=== PATIENT | female | born 1990 | race Hispanic/Latino ===

== ENCOUNTER 2016-10-17 10:35 | Emergency (ER) | payer OTHER ==
[2016-10-17 10:35] VITALS: BMI 33.2
[2016-10-17 10:43] VITALS: BP 145/94; PULSE 72; RESP 18; TEMP 98; O2SAT 100
--- NOTE | 2016-10-17 11:44 | ED PDOC ---
HPI: Female Pain Time Seen by Provider: 10/17/16 11:04 Chief Complaint (Nursing): Female Genitourinary Chief Complaint (Provider): Vaginal discharge, pelvic pain x 3 days History Per: Patient History/Exam Limitations: no limitations Onset/Duration Of Symptoms: Days Current Symptoms Are (Timing): Still Present Severity: Mild Ant/Post Bofy Image: 1 - Pain Additional Complaint(s): Pt states pain is both sides but slightly more on the right. PT reports irritation of the external genitals when urinating. PT reports unprotected intercourse with only. Pt states she came today because she saw while balls coming out of the vaginal last night. - LMP 09/29/16 Past Medical History Reviewed: Historical Data, Nursing Documentation, Vital Signs Vital Signs: Last Vital Signs Temp 98.0 F 10/17/16 10:59 Pulse 72 10/17/16 10:59 Resp 18 10/17/16 10:59 BP 145/94 H 10/17/16 10:59 Pulse Ox 100 10/17/16 10:59 - Medical History PMH: Anemia (hx transfusion) Denies: Chronic Kidney Disease - Surgical History Surgical History: No Surg Hx - Family History Family History: States: No Known Family Hx - Living Arrangements Living Arrangements: With Family - Social History Current smoker - smoking cessation education provided: No Alcohol: None Drugs: Denies - Immunization History Hx Tetanus Toxoid Vaccination: No Hx Influenza Vaccination: No Hx Pneumococcal Vaccination: No - Home Medications Home Medications: Ambulatory Orders Medication Instructions Recorded Cephalexin [cephalexin] 1 tab PO Q12 #20 cap 01/01/16 Naproxen [Anaprox DS] 1 tab PO Q12 PRN #20 tab 01/01/16 Docusate [Colace] 100 mg PO BID #60 cap 01/03/16 traMADol [Ultram] 50 mg PO Q6H PRN #20 tab 01/03/16 Ciprofloxacin [Cipro] 500 mg PO BID #10 tab 10/17/16 Fluconazole [Diflucan] 150 mg PO ONCE #2 tab 10/17/16 - Allergies Allergies/Adverse Reactions: Allergies Allergy/AdvReac Type Severity Reaction Status Date / Time No Known Allergies Allergy Verified 10/17/16 10:59 Review of Systems ROS Statement: Except As Marked, All Systems Reviewed And Found Negative Gastrointestinal: Negative for: Nausea, Vomiting, Rectal Pain Genitourinary Female: Positive for: Dysuria, Vaginal Discharge, Pelvic Pain Physical Exam - Reviewed Nursing Documentation Reviewed: Yes Vital Signs Reviewed: Yes - Physical Exam Appears: Positive for: Well, Non-toxic, No Acute Distress Head Exam: Positive for: ATRAUMATIC, NORMAL INSPECTION, NORMOCEPHALIC Skin: Positive for: Normal Color, Warm, DRY Eye Exam: Positive for: Normal appearance ENT: Positive for: Normal ENT Inspection Neck: Positive for: Normal, Painless ROM Cardiovascular/Chest: Positive for: Regular Rate, Rhythm Respiratory: Positive for: Normal Breath Sounds. Negative for: Accessory Muscle Use, Respiratory Distress Gastrointestinal/Abdominal: Positive for: Normal Exam, Bowel Sounds, Soft Pelvic Exam: Positive for: External Exam Normal, Bimanual Exam Normal, No Cerv. Motion Tender, No Masses, Discharge (White clumpy on the wall of the vaginal and cervix ). Negative for: Speculum Exam Normal Back: Positive for: Normal Inspection Extremity: Positive for: Normal ROM Neurologic/Psych: Positive for: Alert, Oriented - ECG O2 Sat by Pulse Oximetry: 100 Disposition - Clinical Impression Clinical Impression: Urinary tract infection, Yeast infection of the vagina - Disposition Disposition Time: 13:09 Condition: STABLE Prescriptions: Ciprofloxacin [Cipro] 500 mg PO BID #10 tab Fluconazole [Diflucan] 150 mg PO ONCE #2 tab Instructions: Urinary Tract Infection in Women (ED), Vulvovaginal Candidiasis ( ED) Print Language: CZECH
[2016-10-17 12:26] LABS: RBC URINE 11 /hpf (0-3); URINE BACTERIA RARE (<OCC); URINE BILIRUBIN NEGATIVE (NEGATIVE); URINE BLOOD SMALL (NEGATIVE); URINE COLOR STRAW (YELLOW); URINE GLUCOSE (UA) NEG (Normal); URINE KETONE NEGATIVE (NEGATIVE); URINE LEUKOCYTE ESTERASE LARGE Leu/uL (Negative); URINE PROTEIN NEGATIVE (NEGATIVE); URINE UROBILINOGEN 0.2-1.0 mg/dL (0.2-1.0); WBC URINE 42 /hpf (0-5)
== END 2016-10-17 13:30 | disposition home or self-care (01) ==
LOC: H.ER 10:35
DX: N39.0 Urinary tract infection, site not specified (principal); B37.3 Candidiasis of vulva and vagina

== ENCOUNTER 2016-12-14 15:05 | Emergency (ER) | payer SELFPAY ==
[2016-12-14 15:05] VITALS: BMI 33.2
[2016-12-14 15:21] VITALS: BP 137/77; PULSE 78; RESP 18; TEMP 99; O2SAT 99
[2016-12-14] MEDS ORDERED: Prenatal Multivit/Folic Acid/Iron Tab PO STA (15:34)
--- NOTE | 2016-12-14 15:44 | ED PDOC ---
HPI: Abdomen Time Seen by Provider: 12/14/16 15:25 Chief Complaint (Nursing): Abdominal Pain Chief Complaint (Provider): Abdominal pain History Per: Patient History/Exam Limitations: no limitations Onset/Duration Of Symptoms: Days (3) Outside of [place] travel?: No Current Symptoms Are (Timing): Still Present Severity: Moderate Location Of Pain/Discomfort: Diffuse Quality Of Discomfort: "Pain" Associated Symptoms: denies: Fever, Chills, Back Pain, Chest Pain, Urinary Symptoms Additional Complaint(s): The pt is a 26yo female, LMP on 10/29/16 with a positive home test, presents to the ED for evaluation of abdominal pain present for the past 3 days. Pt reports she was lifting a heavy box at work and a corner of the box pushed into her abdomen, resulting in pain. She reports that she was worried because she knows she is , so she presented to the ED. Pt denies any associated fever, chest pain, shortness of breath, vomiting, vaginal bleeding, vaginal discharge, urinary or bowel changes. Pt offers no additional medical complaints. Abnormal Vaginal Bleeding: No Last Menstral Period: 10/29/16 ED Scribe Attestation - Scribe Statement Scribe Attestation: Documented by Scribename acting as a scribe for Kerline Cates MD. Emily Chi Provider Scribe Attestation: All medical record entries made by the Scribe were at my direction and personally dictated by me. I have reviewed the chart and agree that the record accurately reflects my personal performance of the history, physical exam, medical decision making, and the department course for this patient. I have also personally directed, reviewed, and agree with the discharge instructions and disposition. Past Medical History Reviewed: Historical Data, Nursing Documentation, Vital Signs Vital Signs: Last Vital Signs Temp 99 F 12/14/16 15:17 Pulse 78 12/14/16 15:17 Resp 18 12/14/16 15:17 BP 137/77 12/14/16 15:17 Pulse Ox 99 12/14/16 17:28 - Medical History PMH: Anemia (hx transfusion) Denies: Chronic Kidney Disease - Surgical History Surgical History: No Surg Hx - Family History Family History: States: Unknown Family Hx - Immunization History Hx Tetanus Toxoid Vaccination: No Hx Influenza Vaccination: No Hx Pneumococcal Vaccination: No - Home Medications Home Medications: Ambulatory Orders Medication Instructions Recorded Cephalexin [cephalexin] 1 tab PO Q12 #20 cap 01/01/16 Naproxen [Anaprox DS] 1 tab PO Q12 PRN #20 tab 01/01/16 Docusate [Colace] 100 mg PO BID #60 cap 01/03/16 traMADol [Ultram] 50 mg PO Q6H PRN #20 tab 01/03/16 Ciprofloxacin [Cipro] 500 mg PO BID #10 tab 10/17/16 Fluconazole [Diflucan] 150 mg PO ONCE #2 tab 10/17/16 Multivit/Folic Acid/I 1 tab PO DAILY #30 tab 12/14/16 [ Plus] - Allergies Allergies/Adverse Reactions: Allergies Allergy/AdvReac Type Severity Reaction Status Date / Time No Known Allergies Allergy Verified 10/17/16 10:59 Review of Systems ROS Statement: Except As Marked, All Systems Reviewed And Found Negative Constitutional: Negative for: Fever, Chills Cardiovascular: Negative for: Chest Pain Respiratory: Negative for: Cough, Shortness of Breath Gastrointestinal: Positive for: Abdominal Pain. Negative for: Nausea, Vomiting Genitourinary Female: Negative for: Dysuria, Vaginal Discharge, Vaginal Bleeding , Pelvic Pain Neurological: Negative for: Weakness, Numbness Physical Exam - Reviewed Nursing Documentation Reviewed: Yes Vital Signs Reviewed: Yes - Physical Exam Appears: Positive for: Well, Non-toxic, No Acute Distress Head Exam: Positive for: ATRAUMATIC, NORMAL INSPECTION, NORMOCEPHALIC Skin: Positive for: Normal Color, Warm, DRY Eye Exam: Positive for: Normal appearance Neck: Positive for: Normal, Supple Cardiovascular/Chest: Positive for: Regular Rate, Rhythm Respiratory: Positive for: Normal Breath Sounds. Negative for: Respiratory Distress Gastrointestinal/Abdominal: Positive for: Normal Exam, Soft. Negative for: Tenderness, Mass, Distended Back: Positive for: Normal Inspection. Negative for: L CVA Tenderness, R CVA Tenderness Extremity: Positive for: Normal ROM. Negative for: Deformity, Swelling Neurologic/Psych: Positive for: Alert, Oriented - Laboratory Results Result Diagrams: 12/14/16 16:00 12/14/16 16:15 - ECG O2 Sat by Pulse Oximetry: 99 (RA) Pulse Ox Interpretation: Normal Medical Decision Making Medical Decision Making: Time: 1535 Impression: 26yo female w/ abdominal pain in setting of Differential: Monitoring , r/o ectopic Plan: -- US Transvaginal -- Labs -- Tylenol 650 mg PO -- multivitamin --Reassess U/S shows FINDINGS: Cardiac activity: Present Rate: 126 BPM Measurements: [place] rump length: 0.67 cm Gestational age based on CRL 6 weeks 4 days Gestational age based on gestational sac measurement 5 weeks 2 days Gestational age derived from LMP: 6 weeks 4 days VIOLA based on LMP: 08/05/2017 VIOLA based on biometry: 08/09/2017 Gestational concordance documented Yolk sac identified Uterus: Unremarkable. Uterine measurements 6.1 x 3.7 x 8.7 No Cervical abnormalities: Negative examination for cervical dilatation or effacement. Subchorionic hemorrhage: None ADNEXA: Right: 1 x 1.6 cm. Normal Doppler arterial waveform documented. Left: 1.2 x 1.3 cm. Normal Doppler arterial waveform documented Fluid in the cul-de-sac: None IMPRESSION: 6 weeks live intrauterine gestation. Gestational concordance documented. 5:14PM Patient's ua is negative for nitrates and leukocytes. Her cervix is closed and Blood type is O+ with no vaginal bleeding. Her Bhcg is 9458. CBC and CMP WNL. Patient reports that she has OB follow-up and will discharge patient with vitamins. Disposition - Clinical Impression Clinical Impression: Abdominal pain during - Disposition Disposition: Routine/Home Disposition Time: 17:26 Condition: GOOD Additional Instructions: You are 6 weeks . Your bhcg today was 9458. Follow up with your OB/ [facility] within 2 days. Return to ED if condition worsens. Take vitamin daily Prescriptions: Multivit/Folic Acid/I [ Plus] 1 tab PO DAILY #30 tab Instructions: Morning Sickness (ED), (ED) Print Language: ALBANIAN
[2016-12-14 16:20] LABS: BASO # 0.1 K/uL (0.0-0.2); BASO % 0.5 % (0.0-2.0); EOS # 0.1 K/uL (0.0-0.7); EOS % 0.9 % (0.0-4.0); HEMOGLOBIN 12.2 g/dL (12.0-16.0); LYMPH # 3.2 K/uL (1.0-4.3); LYMPH % 30.2 % (20.0-40.0); MEAN CELL VOLUME 83.6 fl (81.0-99.0); MEAN CORPUSCULAR HGB CONC 32.3 g/dL (33.0-37.0); MEAN PLATELET VOLUME 8.3 fl (7.2-11.7); MONO # 0.8 K/uL (0.0-0.8); MONO % 7.6 % (0.0-10.0); NEUT # 6.6 K/uL (1.8-7.0); NEUT % 60.8 % (50.0-75.0); NRBC % 0.1 % (0.0-0.0); RBC 4.52 Mil/uL (3.80-5.20); RED CELL DISTRIBUTION WIDTH 14.2 % (11.5-14.5); WHITE BLOOD COUNT 10.8 K/uL (4.8-10.8)
[2016-12-14 16:22] LABS: SQUAMOUS EPITHIAL < 1 /hpf (0-5); URINE BACTERIA RARE (<OCC); URINE BILIRUBIN NEGATIVE (NEGATIVE); URINE BLOOD NEGATIVE (NEGATIVE); URINE CLARITY SLIGHTY-CLOUDY (Clear); URINE COLOR YELLOW (YELLOW); URINE GLUCOSE (UA) NEG (Normal); URINE LEUKOCYTE ESTERASE NEG Leu/uL (Negative); URINE NITRATE NEGATIVE (NEGATIVE); URINE PROTEIN NEGATIVE (NEGATIVE); URINE UROBILINOGEN 0.2-1.0 mg/dL (0.2-1.0)
[2016-12-14 16:38] LABS: ALB/GLOB RATIO 1.2 (1.0-2.1); ALT/SGPT 35 U/L (9-52); AST/SGOT 24 U/L (14-36); BLOOD UREA NITROGEN 8 mg/dl (7-17); CALCIUM 9.3 mg/dL (8.4-10.2); GFR AFRICAN-AMERICAN > 60; GFR NON-AFRICAN AMERICAN > 60
--- NOTE | 2016-12-14 16:53 | US ---
PROCEDURE: First trimester ultrasound HISTORY: , abdominal pain Beta HCG results: Pending COMPARISON: None available. TECHNIQUE: Standard protocol for this study/examination. FINDINGS: LMP: 10/21/2016 Prior examinations from the current : None TECHNIQUE: Real-time 2D imaging, duplex and color Doppler. FINDINGS: Cardiac activity: Present Rate: 126 BPM Measurements: [place] rump length: 0.67 cm Gestational age based on CRL 6 weeks 4 days Gestational age based on gestational sac measurement 5 weeks 2 days Gestational age derived from LMP: 6 weeks 4 days VIOLA based on LMP: 08/05/2017 VIOLA based on biometry: 08/09/2017 Gestational concordance documented Yolk sac identified Uterus: Unremarkable. Uterine measurements 6.1 x 3.7 x 8.7 No Cervical abnormalities: Negative examination for cervical dilatation or effacement. Subchorionic hemorrhage: None ADNEXA: Right: 1 x 1.6 cm. Normal Doppler arterial waveform documented. Left: 1.2 x 1.3 cm. Normal Doppler arterial waveform documented Fluid in the cul-de-sac: None IMPRESSION: 6 weeks live intrauterine gestation. Gestational concordance documented.
== END 2016-12-14 17:38 | disposition home or self-care (01) ==
LOC: H.ER 15:05
DX: O26.891 Other specified pregnancy related conditions, first trimester (principal)

== ENCOUNTER 2017-02-17 16:15 | Emergency (ER) | payer MEDICAID, SELFPAY ==
[2017-02-17 16:15] VITALS: BMI 33.2
[2017-02-17 16:21] VITALS: BP 125/65; PULSE 74; RESP 18; TEMP 97.2; O2SAT 100
--- NOTE | 2017-02-17 16:58 | ED PDOC ---
HPI: Abdomen Time Seen by Provider: 02/17/17 16:25 Chief Complaint (Nursing): Abdominal Pain Chief Complaint (Provider): Abdominal Pain History Per: Patient History/Exam Limitations: no limitations Onset/Duration Of Symptoms: Days (1 week) Additional Complaint(s): Patient is a 26 y/o female, 16 weeks , who is complaining of a lower abdominal pain. The pain has lasted for one week, and is described as intermittent. Patient is positive for care, but denies fever, nausea, vomiting, constipation, and diarrhea. Past Medical History Reviewed: Historical Data, Nursing Documentation, Vital Signs Vital Signs: Last Vital Signs Temp 97.2 F L 02/17/17 16:18 Pulse 74 02/17/17 16:18 Resp 18 02/17/17 16:18 BP 125/65 02/17/17 16:18 Pulse Ox 100 02/17/17 17:24 - Medical History PMH: Anemia (hx transfusion) Denies: Chronic Kidney Disease - Surgical History Surgical History: No Surg Hx - Family History Family History: States: Unknown Family Hx - Social History Current smoker - smoking cessation education provided: No Alcohol: None Drugs: Denies - Immunization History Hx Tetanus Toxoid Vaccination: No Hx Influenza Vaccination: No Hx Pneumococcal Vaccination: No - Home Medications Home Medications: Ambulatory Orders Medication Instructions Recorded Cephalexin [cephalexin] 1 tab PO Q12 #20 cap 01/01/16 Naproxen [Anaprox DS] 1 tab PO Q12 PRN #20 tab 01/01/16 Docusate [Colace] 100 mg PO BID #60 cap 01/03/16 traMADol [Ultram] 50 mg PO Q6H PRN #20 tab 01/03/16 Ciprofloxacin [Cipro] 500 mg PO BID #10 tab 10/17/16 Fluconazole [Diflucan] 150 mg PO ONCE #2 tab 10/17/16 Multivit/Folic Acid/I 1 tab PO DAILY #30 tab 12/14/16 [ Plus] Miconazole Nitrate [Monistat 3] 1 each VG DAILY #1 kit 02/17/17 Nitrofurantoin Macrocrystals 100 mg PO BID #14 cap 02/17/17 [Macrobid] - Allergies Allergies/Adverse Reactions: Allergies Allergy/AdvReac Type Severity Reaction Status Date / Time No Known Allergies Allergy Verified 05/16/17 10:59 Review of Systems ROS Statement: Except As Marked, All Systems Reviewed And Found Negative Constitutional: Negative for: Fever Gastrointestinal: Positive for: Abdominal Pain (lower region). Negative for: Nausea, Vomiting, Diarrhea, Constipation Genitourinary Female: Negative for: Dysuria, Frequency, Incontinence, Hematuria , Vaginal Discharge, Vaginal Bleeding Physical Exam - Reviewed Nursing Documentation Reviewed: Yes Vital Signs Reviewed: Yes - Physical Exam Appears: Positive for: No Acute Distress Head Exam: Positive for: ATRAUMATIC, NORMAL INSPECTION, NORMOCEPHALIC Skin: Positive for: Normal Color, Warm, Dry Neck: Positive for: Normal, Supple Cardiovascular/Chest: Positive for: Regular Rate, Rhythm. Negative for: Murmur Respiratory: Positive for: Normal Breath Sounds. Negative for: Accessory Muscle Use, Respiratory Distress Gastrointestinal/Abdominal: Positive for: Soft, Tenderness (left-sided suprapubic). Negative for: Normal Exam, Guarding, Rebound Neurologic/Psych: Positive for: Alert, Oriented (x3) - ECG O2 Sat by Pulse Oximetry: 100 (RA) Pulse Ox Interpretation: Normal Medical Decision Making Medical Decision Making: Time: 16:45 Initial impression: Abdominal pain in second trimester Initial plan: ED Urine Dipstick Urinalysis Stat Ultra Sound OB Reevaluation Scribe Attestation: Documented by Liss Collazo, acting as a scribe for Gina Alejandre MD Provider Scribe Attestation: All medical record entries made by the Scribe were at my direction and personally dictated by me. I have reviewed the chart and agree that the record accurately reflects my personal performance of the history, physical exam, medical decision making, and the department course for this patient. I have also personally directed, reviewed, and agree with the discharge instructions and disposition. Disposition - Clinical Impression Clinical Impression: UTI (urinary tract infection), Yeast infection of the vagina, Abdominal pain during - Disposition Condition: STABLE Additional Instructions: FOLLOW-UP WITH YOUR OB-[facility] WITHIN 2 DAYS FOR REEVALUATION. Prescriptions: Miconazole Nitrate [Monistat 3] 1 each VG DAILY #1 kit Nitrofurantoin Macrocrystals [Macrobid] 100 mg PO BID #14 cap Instructions: Miconazole (Into the vagina), Vulvovaginal Candidiasis (ED), Abdominal Pain in (ED), Urinary Tract Infection in (ED) Forms: [facility] (Irish) Print Language: [place] CITIZEN
[2017-02-17 17:16] LABS: RBC URINE 2 /hpf (0-3); URINE BACTERIA OCC (<OCC); URINE BILIRUBIN NEGATIVE (NEGATIVE); URINE BLOOD NEGATIVE (NEGATIVE); URINE COLOR YELLOW (YELLOW); URINE GLUCOSE (UA) NEG (Normal); URINE KETONE NEGATIVE (NEGATIVE); URINE LEUKOCYTE ESTERASE NEG Leu/uL (Negative); URINE PROTEIN NEGATIVE (NEGATIVE); URINE UROBILINOGEN 0.2-1.0 mg/dL (0.2-1.0); WBC URINE 4 /hpf (0-5)
--- NOTE | 2017-02-17 20:24 | US ---
EXAM: US After First Trimester, Transabdominal CLINICAL HISTORY: 26 years old, female; Pain; complicated by abdominal or pelvic pain; Generalized abdominal pain; Second trimester; Gestational age or lmp: Lmp 5.25.2017; ; Additional info: Suprapubic pain, 16 weeks TECHNIQUE: Real-time transabdominal obstetrical ultrasound of the maternal pelvis and a second or third trimester with image documentation. COMPARISON: US - OB TRANSVAGINAL 12/14/2016 4:07:47 PM FINDINGS: Fetus: Single live intrauterine gestation. Heart rate: heart rate of 145 beats per minute. Presentation: Cephalic. Placenta: Posterior. No placenta previa or abruption. Amniotic fluid: Normal. Anatomy: No gross anomaly is appreciated. BIOMETRICS Gestational age by US: Estimated gestational age of 17 weeks 0 days by measurements. EFW: Estimated weight of 172 g. BPD: 3.6 cm, correlating with 17 weeks 1 day. HC: 13.7 cm, correlating with 17 weeks 1 day. AC: 11.1 cm, correlating with 17 weeks 0 days. FL: 2.2 cm, correlating with 16 weeks 5 days. MATERNAL: Uterus: Unremarkable. No myometrial mass. Cervix: No cervical dilatation or effacement. Adnexa: Normal ovaries. No adnexal masses. Free fluid: No significant free fluid. IMPRESSION: 1. Single live intrauterine gestation.
== END 2017-02-17 18:54 | disposition home or self-care (01) ==
LOC: H.ER 16:15
DX: O23.40 Unspecified infection of urinary tract in pregnancy, unspecified trimester (principal); O23.599 Infection of other part of genital tract in pregnancy, unspecified trimester

== ENCOUNTER 2017-02-22 14:23 | Emergency (ER) | payer MEDICAID, SELFPAY ==
[2017-02-22 14:23] VITALS: BMI 33.2
[2017-02-22 14:32] VITALS: RESP 16; TEMP 98.7
--- NOTE | 2017-02-22 15:35 | ED PDOC ---
Upper Extremity Pain/Injury Time Seen by Provider: 02/22/17 15:10 Chief Complaint (Nursing): Upper Extremity Problem/Injury Chief Complaint (Provider): Abdomina pain and headache History Per: Patient History/Exam Limitations: no limitations Onset/Duration Of Symptoms: Days (x2 weeks) Current Symptoms Are (Timing): Still Present Additional Complaint(s): Yesika Dawson is a 26 year old female, with a past medical history of anemia, who presents to the emergency department complaining of abdominal pain onset for 2 weeks associated with swollen bilateral hands, mild headache on the left side and leg pain onset since today. She is 19 weeks . Patient reports today she was pale and felt like she was going to pass out, around the same time she noticed her hands were swollen. She states she was seen in the ED last month for headaches due to injury but has never been diagnosed with migraines. She was seen in the ED on Sunday due to urinary symptoms and was given antibiotics with relief. Patient denies any fever, nausea, vomit, and vaginal bleeding. PMD: None provided. Past Medical History Reviewed: Historical Data, Nursing Documentation, Vital Signs Vital Signs: Last Vital Signs Temp 98.7 F 02/22/17 14:28 Pulse 74 02/22/17 14:28 Resp 16 02/22/17 14:28 BP 130/77 02/22/17 14:28 Pulse Ox 99 02/22/17 14:28 - Medical History PMH: Anemia (hx transfusion) Denies: Chronic Kidney Disease - Surgical History Surgical History: No Surg Hx - Family History Family History: States: Unknown Family Hx - Immunization History Hx Tetanus Toxoid Vaccination: No Hx Influenza Vaccination: No Hx Pneumococcal Vaccination: No - Home Medications Home Medications: Ambulatory Orders Medication Instructions Recorded Cephalexin [cephalexin] 1 tab PO Q12 #20 cap 01/01/16 Naproxen [Anaprox DS] 1 tab PO Q12 PRN #20 tab 01/01/16 Docusate [Colace] 100 mg PO BID #60 cap 01/03/16 traMADol [Ultram] 50 mg PO Q6H PRN #20 tab 01/03/16 Ciprofloxacin [Cipro] 500 mg PO BID #10 tab 10/17/16 Fluconazole [Diflucan] 150 mg PO ONCE #2 tab 10/17/16 Multivit/Folic Acid/I 1 tab PO DAILY #30 tab 12/14/16 [ Plus] Miconazole Nitrate [Monistat 3] 1 each VG DAILY #1 kit 02/17/17 Nitrofurantoin Macrocrystals 100 mg PO BID #14 cap 02/17/17 [Macrobid] - Allergies Allergies/Adverse Reactions: Allergies Allergy/AdvReac Type Severity Reaction Status Date / Time No Known Allergies Allergy Verified 10/17/16 10:59 Review of Systems ROS Statement: Except As Marked, All Systems Reviewed And Found Negative Constitutional: Negative for: Fever Gastrointestinal: Positive for: Abdominal Pain. Negative for: Nausea, Vomiting Genitourinary Female: Negative for: Vaginal Bleeding Musculoskeletal: Positive for: Leg Pain (b/l), Other (b/l swollen hands) Neurological: Positive for: Headache (mild, most on the left side) Physical Exam - Reviewed Nursing Documentation Reviewed: Yes Vital Signs Reviewed: Yes - Physical Exam Appears: Positive for: Non-toxic Head Exam: Positive for: ATRAUMATIC, NORMAL INSPECTION, NORMOCEPHALIC Skin: Positive for: Normal Color, Warm, Dry Eye Exam: Positive for: EOMI, Normal appearance, PERRL ENT: Positive for: Normal ENT Inspection Neck: Positive for: Normal, Painless ROM, Supple Cardiovascular/Chest: Positive for: Regular Rate, Rhythm. Negative for: Murmur Respiratory: Positive for: Normal Breath Sounds. Negative for: Respiratory Distress Gastrointestinal/Abdominal: Positive for: Normal Exam, Bowel Sounds, Soft. Negative for: Tenderness (lower abdominal) Back: Positive for: Normal Inspection Extremity: Negative for: Swelling (No swelling on feet) Neurologic/Psych: Positive for: Alert, Oriented. Negative for: Motor/Sensory Deficits - Laboratory Results Result Diagrams: 02/22/17 15:33 02/22/17 15:33 - ECG ECG Rhythm: Positive for: Normal QRS, Normal ST Segment, Sinus Rhythm (normal) Rate: 68 O2 Sat by Pulse Oximetry: 99 (RA) Pulse Ox Interpretation: Normal Medical Decision Making Medical Decision Making: Initial Impression: Pelvic pain differential includes: female second trimester conditions such as threat of miscarriage, UTI and ovarian cyst. Hand swelling, headache and near syncope differential includes: hypertension of , dehydration cardiac arrhythmia and acute renal failure to r/o pre- eclampsia. Initial Plan: --EKG --Comp Metabolic Panel --Uric Acid --Urine Dipstick --Tylenol 650 mg PO --OB , Limited [US] --reevaluation 02/17/17 US FINDINGS: Fetus: Single live intrauterine gestation. Heart rate: heart rate of 145 beats per minute. Presentation: Cephalic. Placenta: Posterior. No placenta previa or abruption. Amniotic fluid: Normal. Anatomy: No gross anomaly is appreciated. BIOMETRICS Gestational age by US: Estimated gestational age of 17 weeks 0 days by measurements. EFW: Estimated weight of 172 g. BPD: 3.6 cm, correlating with 17 weeks 1 day. HC: 13.7 cm, correlating with 17 weeks 1 day. AC: 11.1 cm, correlating with 17 weeks 0 days. FL: 2.2 cm, correlating with 16 weeks 5 days. MATERNAL: Uterus: Unremarkable. No myometrial mass. Cervix: No cervical dilatation or effacement. Adnexa: Normal ovaries. No adnexal masses. Free fluid: No significant free fluid. IMPRESSION: 1. Single live intrauterine gestation. 1719 OB US FINDINGS: UTERUS: Gestational sac: Single intrauterine gestation in cephalic presentation. Heart rate: 147 bpm. BPD: 3.8 cm corresponding to 17 weeks and 5 days of gestational age. HC: 13.2 cm corresponding to 16 weeks and 5 days of gestational age. AC: 11.8 cm corresponding to 17 weeks and 4 days of gestational age. FL: 2.4 cm corresponding to 17 weeks and 1 day of gestational age. age (Ultrasound estimated): 17 weeks and 2 days [place]-gestational hemorrhage: None. Date of delivery (Ultrasound estimated) : 07/31/2017. Placenta is anterior. CERVIX: Long and closed. No cervical abnormality seen. RIGHT OVARY: Not visualized. LEFT OVARY: Not visualized. FREE FLUID: None. OTHER FINDINGS: None. IMPRESSION: Single live intrauterine fetus in cephalic presentation. The mean gestational age is 17 weeks and 2 days. The estimated date of delivery by ultrasound is . The ultrasound dates correspond with the clinical dates. Please note this is a limited obstetric ultrasound performed in the emergency room. A follow-up anatomic survey is recommended. 1820 Upon provider evaluation patient is medically stable, and requires no further treatment in the ED at this time. Patient will be discharged home with Rx for -- -. Counseling was provided and all questions were answered regarding diagnosis and need for follow up. There is agreement to discharge plan. Return if symptoms persist or worsen. Scribe Attestation: Documented by Sumit Rod, acting as a scribe for Oskar Solano MD Provider Scribe Attestation: All medical record entries made by the Scribe were at my direction and personally dictated by me. I have reviewed the chart and agree that the record accurately reflects my personal performance of the history, physical exam, medical decision making, and the department course for this patient. I have also personally directed, reviewed, and agree with the discharge instructions and disposition. Disposition - Clinical Impression Clinical Impression: Abdominal pain during , Near syncope, Headache - Patient ED Disposition Is Patient to be Admitted: No Doctor Will See Patient In The: Office Counseled Patient/Family Regarding: Studies Performed, Diagnosis, Need For Followup - Disposition Referrals: [facility] [Outside] Disposition: Routine/Home Disposition Time: 18:12 Condition: GOOD Additional Instructions: Return for worsening. Follow up with your PCP in 2-3 days. Take tylenol for headaches. Instructions: Near Syncope (ED), Abdominal Pain in (ED), General Headache (ED) Print Language: BAHAMIAN
[2017-02-22 15:51] LABS: BASO # 0.1 K/uL (0.0-0.2); BASO % 0.5 % (0.0-2.0); EOS # 0.2 K/uL (0.0-0.7); EOS % 1.8 % (0.0-4.0); HEMATOCRIT 36.6 % (34.0-47.0); LYMPH # 2.5 K/uL (1.0-4.3); LYMPH % 21.8 % (20.0-40.0); MEAN CELL VOLUME 84.3 fl (81.0-99.0); MEAN CORPUSCULAR HEMOGLOBIN 27.2 pg (27.0-31.0); MEAN CORPUSCULAR HGB CONC 32.2 g/dL (33.0-37.0); MEAN PLATELET VOLUME 9.2 fl (7.2-11.7); MONO # 0.6 K/uL (0.0-0.8); MONO % 4.8 % (0.0-10.0); NEUT # 8.3 K/uL (1.8-7.0); NEUT % 71.1 % (50.0-75.0); NRBC % 0.1 % (0.0-0.0); RED CELL DISTRIBUTION WIDTH 13.8 % (11.5-14.5); WHITE BLOOD COUNT 11.7 K/uL (4.8-10.8)
[2017-02-22 15:57] LABS: ALB/GLOB RATIO 1.2 (1.0-2.1); ALKALINE PHOSPHATASE 64 U/L (38-126); ALT/SGPT 26 U/L (9-52); AST/SGOT 35 U/L (14-36); BILIRUBIN,TOTAL 0.6 mg/dl (0.2-1.3); BLOOD UREA NITROGEN 3 mg/dl (7-17); CALCIUM 9.2 mg/dL (8.4-10.2); CARBON DIOXIDE 23 mmol/L (22-30); CHLORIDE 106 mmol/L (98-107); GFR AFRICAN-AMERICAN > 60; GLUCOSE,RANDOM 95 mg/dL (65-105); POTASSIUM 4.4 MMOL/L (3.6-5.0); SODIUM 136 mmol/l (132-148); TOTAL PROTEIN 7.2 G/DL (6.3-8.2)
--- NOTE | 2017-02-22 17:21 | US ---
PROCEDURE: OB Pelvic Ultrasound HISTORY: Pelvic pain COMPARISON: None available. FINDINGS: UTERUS: Gestational sac: Single intrauterine gestation in cephalic presentation. Heart rate: 147 bpm. BPD: 3.8 cm corresponding to 17 weeks and 5 days of gestational age. HC: 13.2 cm corresponding to 16 weeks and 5 days of gestational age. AC: 11.8 cm corresponding to 17 weeks and 4 days of gestational age. FL: 2.4 cm corresponding to 17 weeks and 1 day of gestational age. age (Ultrasound estimated): 17 weeks and 2 days [place]-gestational hemorrhage: None. Date of delivery (Ultrasound estimated) : 07/31/2017. Placenta is anterior. CERVIX: Long and closed. No cervical abnormality seen. RIGHT OVARY: Not visualized. LEFT OVARY: Not visualized. FREE FLUID: None. OTHER FINDINGS: None. IMPRESSION: Single live intrauterine fetus in cephalic presentation. The mean gestational age is 17 weeks and 2 days. The estimated date of delivery by ultrasound is 07/31/2017. The ultrasound dates correspond with the clinical dates. Please note this is a limited obstetric ultrasound performed in the emergency room. A follow-up anatomic survey is recommended.
[2017-02-22 18:09] VITALS: BP 116/69
[2017-02-22 18:14] VITALS: PULSE 68; O2SAT 99
--- NOTE | 2017-02-23 08:43 | CARD ---
APPROVED REPORT EKG Measurement Heart [id number] <Conclusion> Normal sinus rhythm Normal ECG
== END 2017-02-22 18:51 | disposition home or self-care (01) ==
LOC: H.ER 14:23
DX: O26.892 Other specified pregnancy related conditions, second trimester (principal); Z3A.17 17 weeks gestation of pregnancy; R55 Syncope and collapse

== ENCOUNTER 2017-05-10 01:40 | Emergency (ER) | payer MEDICAID, SELFPAY ==
[2017-05-10 03:17] LABS: BASO % 0.4 % (0.0-2.0); EOS # 0.1 K/uL (0.0-0.7); EOS % 1.2 % (0.0-4.0); LYMPH # 2.8 K/uL (1.0-4.3); MEAN CELL VOLUME 83.2 fl (81.0-99.0); MEAN CORPUSCULAR HEMOGLOBIN 27.9 pg (27.0-31.0); MEAN CORPUSCULAR HGB CONC 33.6 g/dL (33.0-37.0); MEAN PLATELET VOLUME 8.7 fl (7.2-11.7); MONO # 0.6 K/uL (0.0-0.8); MONO % 5.3 % (0.0-10.0); NEUT # 7.3 K/uL (1.8-7.0); NEUT % 67.1 % (50.0-75.0); WHITE BLOOD COUNT 10.8 K/uL (4.8-10.8)
[2017-05-10 03:21] LABS: RBC URINE 1 /hpf (0-3); URINE BACTERIA OCC (<OCC); URINE BILIRUBIN NEGATIVE (NEGATIVE); URINE BLOOD NEGATIVE (NEGATIVE); URINE COLOR YELLOW (YELLOW); URINE GLUCOSE (UA) NEG (Normal); URINE KETONE TRACE mg/dL (NEGATIVE); URINE LEUKOCYTE ESTERASE NEG Leu/uL (Negative); URINE PROTEIN NEGATIVE (NEGATIVE); URINE UROBILINOGEN 0.2-1.0 mg/dL (0.2-1.0); WBC URINE 3 /hpf (0-5)
[2017-05-10] MEDS ORDERED: Lactated Ringer's 1,000 ML IV SCH ×2 (03:30)
--- NOTE | 2017-05-10 06:52 | OBHP ---
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 Pt reports dysuria x 1 week. Denies abdominal trauma or rece nt coitus ( last coitus 4 months ago). Denies passing blood clots. Has hx UTI 2 months ago and succes sfuly treated. Denies fever, chills, vomiting. Denies LOF. Has +FM. Pt reports all her labs are neg including HIV, RPR. No prental records are available. PNC: [facility]. Last visit 3 weeks ago. Next visit: 05/11/17. PNL: negative HIV, RPR, GC/C, and PAP as per pt US: as per pt, she had US on 03/06 and it was WNL. Past obhx: 2 ( 07/2005 and 05/2014), full terms, no complications. 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 Pmhx: Anemia ( hx blood transfusion in 2010), hx UTI. Social: denies drinking EtOH, smoking cigarettes or recreational drug use. Family hx: maternal grandmoter: DMII, CAD medication: PNV allergies: NKDA Assessment: 26 yo IUP @ 26 6/7 weeks GA has CTX, abdominal pain and VB. Plan: Continuous heart tracing IVF UA, Urine C_S CBC Type and screen fFN Case d/w on-call OB hospitalist Dr. Vernon Mason, PGY1 Addendum: Pt is feeling better fFN is neg UA is neg for nitrite and blood, positive for few yeast and occ bacteria. urine cx sent Discharge home w/ labor precaution. Advised to f/u with occupational physician appointment tomorrow and getting a urine cx done in the office. All the questions and concerns were addressed. Pt seen w/ Dr. Vernon Mason, PGY1 The patient was seen with the resident I agree with the note Abdomen - PN: Normal Back - PN: Normal Lungs - PN: Normal Heart - PN: Normal HEENT - PN: Normal General - PN: Normal FHR - Baseline A Provider: 130s Comments, ACOG Physical Exam: SSE: No blood or discharge seen external genitalia. cervix is closed, whitish discharge seen in vaginal wall. No blood seen in the speculum exam. Pool Provider: Negative IP Hx Assessment: No record available EGA AdmitDate IP: 28.0 Vital Signs Provider: Reviewed IP Chief Complaint: Vaginal bleeding; Maternal discomfort NICHD Variability Prov Fetus A: Moderate 6-25bpm NICHD Accel Fetus A IP Provider: 10X10 FHR Category Provider Fetus A: Category I (Annotations: Data stored by CPN on behalf of user)
[2017-05-10 11:48] VITALS: BP 109/73; PULSE 65; RESP 18; TEMP 98; O2SAT 99
== END 2017-05-10 07:00 | disposition home or self-care (01) ==
LOC: H.EROB2 01:40
DX: O26.92 Pregnancy related conditions, unspecified, second trimester (principal); M54.5 Low back pain; R10.2 Pelvic and perineal pain; Z3A.26 26 weeks gestation of pregnancy
CPT/HCPCS: 81003; 85025; 86850; 86900; 87086; 96360; 99283; J7120

== ENCOUNTER 2017-06-22 21:58 | Emergency (ER) | payer SELFPAY ==
[2017-06-22 21:59] VITALS: BMI 33.2
[2017-06-22 22:10] VITALS: BP 128/55; PULSE 84; RESP 16; TEMP 98.1; O2SAT 97
[2017-06-22] MEDS ORDERED: Sodium Chloride 0.9% 1,000 ML IV STA (22:33)
[2017-06-22 23:20] LABS: BASO % 0.3 % (0.0-2.0); BLOOD UREA NITROGEN 4 mg/dl (7-17); CALCIUM 9.8 mg/dL (8.4-10.2); EOS # 0.1 K/uL (0.0-0.7); EOS % 0.8 % (0.0-4.0); GFR AFRICAN-AMERICAN > 60; GFR NON-AFRICAN AMERICAN > 60; HEMOGLOBIN 10.9 g/dL (12.0-16.0); LYMPH # 2.7 K/uL (1.0-4.3); LYMPH % 24.7 % (20.0-40.0); MEAN CELL VOLUME 80.4 fl (81.0-99.0); MEAN CORPUSCULAR HEMOGLOBIN 26.2 pg (27.0-31.0); MEAN CORPUSCULAR HGB CONC 32.6 g/dL (33.0-37.0); MEAN PLATELET VOLUME 9.3 fl (7.2-11.7); MONO # 0.8 K/uL (0.0-0.8); MONO % 7.1 % (0.0-10.0); NEUT # 7.3 K/uL (1.8-7.0); NEUT % 67.1 % (50.0-75.0); NRBC % 0.1 % (0.0-0.0); RBC 4.16 Mil/uL (3.80-5.20); RED CELL DISTRIBUTION WIDTH 13.2 % (11.5-14.5)
--- NOTE | 2017-06-22 23:43 | ED PDOC ---
HPI: Chest Pain Time Seen by Provider: 06/22/17 22:19 Chief Complaint (Nursing): Chest Pain Chief Complaint (Provider): Chest Pain History Per: Patient History/Exam Limitations: no limitations Onset/Duration Of Symptoms: Days (x3) Current Symptoms Are (Timing): Still Present Additional Complaint(s): 27 year old female, approximately 3 weeks with previous medical history of anemia, who presents to the emergency department with a complaint of chest pressure associated with acidic taste in mouth, weakness, fatigue and shortness of breath on inhalation ongoing for 3 days. Denied any lower extremity pain or swelling. PMD: none provided Past Medical History Reviewed: Historical Data, Nursing Documentation, Vital Signs Vital Signs: Last Vital Signs Temp 98.1 F 06/22/17 22:07 Pulse 84 06/22/17 22:07 Resp 16 06/22/17 22:07 BP 128/55 L 06/22/17 22:07 Pulse Ox 97 06/23/17 00:43 - Medical History PMH: Anemia (hx transfusion) Denies: Chronic Kidney Disease - Family History Family History: States: Unknown Family Hx - Immunization History Hx Tetanus Toxoid Vaccination: No Hx Influenza Vaccination: No Hx Pneumococcal Vaccination: No - Home Medications Home Medications: Ambulatory Orders Medication Instructions Recorded Vit Calc,Iron,Folic 1 tab PO DAILY 05/10/17 [ Vitamins] Famotidine [Pepcid] 20 mg PO BID #20 tab 06/23/17 - Allergies Allergies/Adverse Reactions: Allergies Allergy/AdvReac Type Severity Reaction Status Date / Time No Known Allergies Allergy Verified 05/10/17 02:21 Review of Systems ROS Statement: Except As Marked, All Systems Reviewed And Found Negative Constitutional: Positive for: Weakness, Malaise Cardiovascular: Positive for: Chest Pain (pressure) Respiratory: Positive for: Shortness of Breath (on inhalation) Gastrointestinal: Positive for: Other (acidic taste in mouth) Musculoskeletal: Negative for: Leg Pain (or swelling) Physical Exam - Reviewed Nursing Documentation Reviewed: Yes Vital Signs Reviewed: Yes - Physical Exam Appears: Positive for: Well, Non-toxic, No Acute Distress Head Exam: Positive for: ATRAUMATIC, NORMAL INSPECTION, NORMOCEPHALIC Skin: Positive for: Normal Color Eye Exam: Positive for: Normal appearance ENT: Positive for: Normal ENT Inspection Neck: Positive for: Normal, Painless ROM. Negative for: Decreased ROM Cardiovascular/Chest: Positive for: Regular Rate, Rhythm, Chest Non Tender Respiratory: Positive for: Normal Breath Sounds. Negative for: Decreased Breath Sounds, Wheezing, Respiratory Distress Gastrointestinal/Abdominal: Positive for: Normal Exam, Other (gravid uterus). Negative for: Tenderness Extremity: Positive for: Normal ROM (lower). Negative for: Pedal Edema ( bilateral), Calf Tenderness (bilateral) Neurologic/Psych: Positive for: Alert (x3), Oriented - Laboratory Results Result Diagrams: 06/22/17 23:05 06/22/17 23:05 - ECG O2 Sat by Pulse Oximetry: 97 (RA) Pulse Ox Interpretation: Normal Medical Decision Making Medical Decision Making: Initial Impression: Dehydration; Initial Plan: * EKG * BMP * Troponin I * CBC * D Dimer * CXR * NS 1,000ml IV per 1,000mls/hr * Pepcid 20mg IVP ____ Time: 2305 --Labs: D Dimer is slightly elevated, however, not significant enough to necessitate evaluation by CTA scan as can also elevate D-Dimer. Mild bump likely due to . Time: 0040 --Upon provider reevaluation, patient is feeling improvement, states CP is no longer there and not feeling SOB after famotidine. Medically stable and requires no further treatment in the ED at this time. Patient will be discharged home with Rx for Pepcid 20mg. Counseling was provided and all questions were answered regarding diagnosis and need for follow up with PMD. There is agreement to discharge plan. Return if symptoms persist or worsen. Clinical Impression: Gastitis Scribe Attestation: Documented by Christin Hernandez, acting as a scribe for Diomedes Pride MD. Provider Scribe Attestation: All medical record entries made by the Scribe were at my direction and personally dictated by me. I have reviewed the chart and agree that the record accurately reflects my personal performance of the history, physical exam, medical decision making, and the department course for this patient. I have also personally directed, reviewed, and agree with the discharge instructions and disposition. Disposition - Clinical Impression Clinical Impression: Gastritis - Patient ED Disposition Is Patient to be Admitted: No Counseled Patient/Family Regarding: Studies Performed, Diagnosis, Need For Followup, Rx Given - Disposition Referrals: [facility] [employer] - [facility] [Outside] Disposition: Routine/Home Disposition Time: 00:40 Condition: IMPROVED Prescriptions: Famotidine [Pepcid] 20 mg PO BID #20 tab Instructions: Gastritis (DC), Diet for Ulcers and Gastritis (ED) Forms: [facility] (Welsh) Print Language: SWEDISH
--- NOTE | 2017-06-23 09:39 | RAD ---
PROCEDURE: CHEST RADIOGRAPH, 1 VIEW HISTORY: chest pressure COMPARISON: Chest radiographs 05/22/2017. FINDINGS: LUNGS: No interval active pulmonary disease appreciable. Diminished inspiratory volume. PLEURA: No pneumothorax or pleural fluid seen. CARDIOVASCULAR: Normal. OSSEOUS STRUCTURES: No significant abnormalities. VISUALIZED UPPER ABDOMEN: Normal. OTHER FINDINGS: None. IMPRESSION: No interval acute cardiopulmonary disease appreciated.
--- NOTE | 2017-06-23 19:31 | CARD ---
APPROVED REPORT EKG Measurement Heart [id number] <Conclusion> Normal sinus rhythm Rightward axis Borderline ECG
== END 2017-06-23 01:23 | disposition home or self-care (01) ==
LOC: H.ER 21:58
DX: K29.70 Gastritis, unspecified, without bleeding (principal); O99.011 Anemia complicating pregnancy, first trimester; O99.611 Diseases of the digestive system complicating pregnancy, first trimester; Z3A.01 Less than 8 weeks gestation of pregnancy
CPT/HCPCS: 71045; 80048; 84484; 85025; 85378; 93005; 96374; 99282; J7040

== ENCOUNTER 2017-07-06 23:17 | Inpatient (IN) | payer MEDICAID, SELFPAY ==
[2017-07-06 23:58] VITALS: BMI 34.0
[2017-07-07] MEDS ORDERED: Betamethasone Soluspan 30 mg/5mL Inj Susp IM ONE (00:06)
[2017-07-07] MEDS: Lactated Ringer's 1,000 ML IV SCH ×2 (00:15→09:00)
[2017-07-07 00:41] LABS: HEMOGLOBIN 10.7 g/dL (12.0-16.0); MEAN CELL VOLUME 78.8 fl (81.0-99.0); MEAN CORPUSCULAR HEMOGLOBIN 25.7 pg (27.0-31.0); MEAN CORPUSCULAR HGB CONC 32.6 g/dL (33.0-37.0); RBC 4.15 Mil/uL (3.80-5.20); RED CELL DISTRIBUTION WIDTH 13.5 % (11.5-14.5); WHITE BLOOD COUNT 12.5 K/uL (4.8-10.8)
[2017-07-07 01:08] LABS: SQUAMOUS EPITHIAL 1 /hpf (0-5); URINE BACTERIA RARE (<OCC); URINE BILIRUBIN NEGATIVE (NEGATIVE); URINE BLOOD SMALL (NEGATIVE); URINE CLARITY CLEAR (Clear); URINE COLOR STRAW (YELLOW); URINE GLUCOSE (UA) NEG (Normal); URINE LEUKOCYTE ESTERASE NEG Leu/uL (Negative); URINE NITRATE NEGATIVE (NEGATIVE); URINE PROTEIN NEGATIVE (NEGATIVE); URINE UROBILINOGEN 0.2-1.0 mg/dL (0.2-1.0)
[2017-07-07] MEDS ORDERED: Morphine 1 mg/ml preservative-free Inj(Duramorph) IM STA (02:16)
[2017-07-07] MEDS ORDERED: Morphine 5 mg/10 ml preservative-free Inj(Duramorph) IV ONE (02:16)
[2017-07-07 02:44] LABS: ALB/GLOB RATIO 0.9 (1.0-2.1); ALBUMIN 3.3 g/dL (3.5-5.0); ALT/SGPT 13 U/L (9-52); AST/SGOT 20 U/L (14-36); BLOOD UREA NITROGEN 3 mg/dl (7-17); CALCIUM 9.3 mg/dL (8.4-10.2); GFR AFRICAN-AMERICAN > 60; GFR NON-AFRICAN AMERICAN > 60
[2017-07-07] MEDS ORDERED: Penicillin G Potassium 5 MU in Sodium Chloride 0.9% 50 ML IVPB ONE (05:15)
[2017-07-07 05:41] VITALS: O2SAT 100
[2017-07-07] MEDS ORDERED: Oxytocin 30 UNITS in Sodium Chloride 0.9% 500 ML IV SCH (05:45)
[2017-07-07] MEDS ORDERED: Lidocaine 1% Inj (20ml) ONE (06:23)
--- NOTE | 2017-07-07 08:10 | OBADHP ---
Datetime: 07/07/2017 05:23 Admit Comment, IP Provider: 27 yo at 36w3d by LMP, with VIOLA 08/02/17, presented to [facility] with c ontractions occuring every 10 minutes; she has been feeling contractions since yesterday but they hav e gotten more intense since 9 pm. Reports good movement, is unsure if her water broke, reports passing bloody mucus prior to arrival to ED. care: [facility]; last visit 07/05/17 labs: GBS+ (was swabbed 06/28/17 as per records pt brought from [facility]). HIV neg, RP R neg, HbsAg neg, Rubella immune, GC/CL neg Blood type: O+, antibody neg. PPD+, CXR negative for pulm disease 05/23/17. Past OBhx: 2x NVD, both at past 37 weeks, no complications PMH: denies Family hx: denies Social hx: denies tobacco, alcohol, drug use Surg hx: none Allergies: NKDA Meds: PNV ROS: no dizziness, chest pain, shortness of breath. Admits to having headache and vomiting at 9 pm prior to coming to ED, as well as admits to dysuria for the past several days. PE: Gen: alert, oriented, appears moderately uncomfortable CV: S1S2,RRR Resp: clear breath sounds bilaterally, normal effort of respiration Abd: +BS, gravid Ext: no edema SVE: 5cm, 70% effaced, -3 station A: 27 yo at 36w2d GA, in active labor, GBS positive. Received 12mg injection of betamethasone at 00:37. Type and screen, CBC, CMP, urinalysis drawn while pt was being observed throughout the [facility]t. Urinalysis unremarkable. Plan: Admit to labor and delivery, expectant management for vaginal delivery. Start penicillin G. Pt seen and discussed with Dr. Santiago. [id number] Addendum by Dr. Santiago: Patient evaluated independently. Patient re-evalauted and found to be 5cm d ilated, admitted for labor Extremities - PN: Normal Abdomen - PN: Normal Back - PN: Normal Breast - PN: Not Done Lungs - PN: Normal Heart - PN: Normal Thyroid - PN: Not Done Neurologic - PN: Normal HEENT - PN: Normal General - PN: Normal FHR - Baseline A Provider: 120 Comments, ACOG Physical Exam: SVE: 5cm, 70%, -3 station. Gestation - Est Wks by US: 36.2 IP Hx Assessment: The History has been Reviewed and is Current IP Chief Complaint: Uterine contractions NICHD Variability Prov Fetus A: Moderate 6-25bpm NICHD Accel Fetus A IP Provider: 15X15 FHR Category Provider Fetus A: Category I NICHD Decel Fetus A IP Provider: None Dilatation, Provider: 5 Effacement, Provider: 70 Station, Provider: -3 Genitourinary Exam: Normal EGA AdmitDate IP: 36.3 IP Adm Impression: , intrauterine IP Admit Plan: Admit to unit Datetime: 07/07/2017 00:05 Vital Signs Provider: Reviewed DTRs - PN: Not Done Datetime: 05/10/2017 02:53 Pool Provider: Negative
--- NOTE | 2017-07-07 10:47 | OBDS ---
DELIVERY PERSONNEL Delivery Doctor: Praveena Haley MD Material Damage Appraiser: Ciarra/Anil/JMcCartyRN Resident: Dr Muhammad MATERNAL INFORMATION Delivery Anesthesia: Local Medications in Delivery: Pitocin Estimated Blood Loss (ml): 200 Placenta Cultured: No Maternal Complications: None Provider Comments: AROM for clear fluid at 09:42 am. Pt pushed to deliver a viable male thro ugh clear fluid at 09:45am. Mary Lazo RN delivered the baby. Apgars 9 and 9. Infant was plac ed on mother's abdomen. Cord was clamped and cut. Cord blood was collected. Placenta delivered spo ntaneously intact w/ a 3vc at 09:48am. 1 % lidocaine infused into tissue prior to repair. Left p eriurethral tear repaired w/ 2 interrupted stitches of 3-0v for hemostasis. Red rubber placed in edvin dder and drained about 200 mL of clear urine. Second degree tear repaired w/ 3-0v. Rectum intact. Pt and babt tolerated the pocedure well. EBL 200mL LABOR SUMMARY EDC: 08/01/2017 00:00 No. Babies in Womb: 1 Attempted: No Labor Anesthesia: local LABOR INFORMATION Reason for Induction: Not Applicable Onset of Labor: 07/07/2017 05:15 Complete Dilatation: 07/07/2017 07:32 Oxytocin: N/A Group B Beta Strep: Positive Antibiotics # of Doses: Pen G 5milUnits@0600 Antibiotics Time of Last Dose: Britany 2.5 mil Units @ 0924 Steroids Given: < 24 Hours before Delivery Reason Steroids Not Administered: Not Applicable MEMBRANES Membranes Rupture Method: Artificial Rupture of Membranes: 07/07/2017 09:42 Length of Rupture (hrs): 0.05 Amniotic Fluid Color: Clear Amniotic Fluid Amount: Moderate Amniotic Fluid Odor: Normal STAGES OF LABOR Stage 1 hrs: 2 Stage 1 min: 17 Stage 2 hrs: 2 Stage 2 min: 13 Stage 3 hrs: 0 Stage 3 min: 3 Total Time in Labor hrs: 4 Total Time in Labor min: 33 VAGINAL DELIVERY Episiotomy: None Laceration Extension: Second Degree Laceration Type: Vaginal; Periurethral Laceration Repair: Yes (Annotations: Data stored by [facility] on behalf of user) BABY A INFORMATION Infant Delivery Date/Time: 07/07/2017 09:45 Method of Delivery: Vaginal Born in Route : No : N/A Forceps: N/A Vacuum Extraction: N/A Shoulder Dystocia : Yes SHOULDER DYSTOCIA BABY A Infant Delivery Date/Time: 07/07/2017 09:45 PRESENTATION/POSITION BABY A Presentation: Cephalic Cephalic Presentation: Vertex Breech Presentation: N/A PLACENTA INFORMATION BABY A Placenta Delivery Time : 07/07/2017 09:48 Placenta Method of Delivery: Spontaneous Placenta Status: Delivered SCORES BABY A Heart Rate 1 min: >100 bpm Resp Effort 1 min: Good Cry Reflex Irritability 1 min: Cough or Sneeze or Pulls Away Muscle Tone 1 min: Active Motion Color 1 min: Body Centre, Extremities Blue Resuscitation Effort 1 min: Tactile Stimulation SCORE 1 MIN: 9 Heart Rate 5 min: >100 bpm Resp Effort 5 min: Good Cry Reflex Irritability 5 min: Cough or Sneeze or Pulls Away Muscle Tone 5 min: Active Motion Color 5 min: Body Centre, Extremities Blue Resuscitation Effort 5 min: N/A SCORE 5 MIN: 9 INFORMATION BABY A Gestational Age at Delivery: 36.3 Gestational Status: Outcome : Liveborn Condition : Stable Sex: Male IDENTIFICATION/MEDS BABY A ID Band Number: [id number] ID Band Location: Left Leg; Left Arm Vitamin K Given : Not Given Erythromycin Given: Not Given WEIGHT/LENGTH BABY A Infant Birthweight (gms): 2540 Weight (lb): 5 Weight (oz): 10 CORD INFORMATION BABY A No. Cord Vessels: 3 Nuchal Cord : N/A Nuchal Cord Other: n/a True Knot: n/a Cord pH Baby Arterial: n/a Cord pH Baby Venous: n/a Cord Blood Taken: Yes Banking/Donate Info: n/a Suction: Mouth; Nose ASSESSMENT BABY A Complications: None Physical Findings at Delivery: Within Normal Limits Respirations: Appears Normal Employee Relation Manager/ALS Called : No Infant Care By: Ciarra/Jayson Transferred To: Remains with Mother
[2017-07-07] MEDS: Benzocaine/Menthol SPRAY TOP PRN (12:36)
[2017-07-08] MEDS ORDERED: Oxycodone/Acetaminophen 5/325 mg Tab PO PRN (10:15)
[2017-07-08 11:00] LABS: HEMOGLOBIN 9.8 g/dL (12.0-16.0); MEAN CELL VOLUME 79.3 fl (81.0-99.0); MEAN CORPUSCULAR HEMOGLOBIN 25.3 pg (27.0-31.0); MEAN CORPUSCULAR HGB CONC 31.9 g/dL (33.0-37.0); RBC 3.89 Mil/uL (3.80-5.20); RED CELL DISTRIBUTION WIDTH 13.4 % (11.5-14.5); WHITE BLOOD COUNT 18.3 K/uL (4.8-10.8)
[2017-07-09] MEDS: Benzocaine/Menthol SPRAY TOP PRN (08:31)
--- NOTE | 2017-07-09 12:10 | OBDCSUM ---
Datetime: 07/09/2017 06:39 Discharged to, Provider: Home Follow up at, Provider: Brandt Brown Disch Instr Activity: Normal activity; May be up to bathroom; May be up for meals; May Shower Disch Instr Diet: Regular Discharge Instructions, Provider: Routine instructions given Discharge Diagnosis, Provider: Delivery Discharge Time: 07/09/2017 10:30 Follow up in weeks, Provider: 4-6 weeks Disch Referrals: None Contraception discussed, Prov: Yes Disch Activity Restrictions: No exercising; No lifting; No driving; Minimize walking; Minimize stair -climbing; No sexual activity; Nothing in vagina - [place], tampons, douche Discharge Comment, Provider: 27 yo , s/p NVD of viable male on 07/07/17 at 09:45, weight 2540, APGARS: 9/9. Doing well on PPD2. Discharge instructions: Encourage PNV 1 tab PO/day Ibuprofen 600 mg 1 tab Q6h PRN if moderate pain, Colace 100mg BID for constipation, Ferrous Sulfat e 325 mg once daily Ambulate with caution, nothing per vagina for 4-6 weeks, no heavy lifting, avoid stairs. If excess av bleeding, or fever without relief from tylenol, go to ED. Follow up with provider at [facility] in 4-6 weeks. Follow up at service or work dispatcher chief or family medicine provider of choice within 1 week to establish care fo r . [email or web address] Contraception after Delivery: Undecided
--- NOTE | 2017-07-09 12:10 | OBPPN ---
Datetime: 07/09/2017 06:35 PP Pain Prov: Within normal limits PP Nausea Prov: Denies PP Flatus Prov: Yes PP BM Prov: No PP Breasts Prov: Not Done PP Heart Prov: Normal PP Lungs Prov: Normal PP Abdomen/Uterus Prov: Normal PP Lochia Prov: Normal PP Vulva/Perineum Prov: Not Done PP CVA Tenderness Prov: Not Done PP Extremities Prov: Normal PP C/S Incision Prov: Not Applicable PP Progress Prov: Normal PP Impression Prov: Normal progression PP Plan Prov: Discharge PP Progress Note Prov: 27 yo , s/p NVD on 07/07/17, PPD 2 . Pt was seen and examined at bedside this morning; no acute events overnight. Reports mild abdominal pain that is controlled w/ medicatio ns. She is ambulating to the bathroom, voiding freely, has passed gas. Lochia less than menses in vol ume. Breast and bottle feeding baby. Denies fever, chills, chest pain, shortness of breath, nausea, vomiting, GI upset, pain in calves. Gen: alert, no acute distress CV: S1S2, RRR Resp: clear breath sounds bilaterally; normal resp effort Abdomen: BS+, appropriate tenderness to palpation. Uterus is firm and at the level of the umbilicu s. Ext: no edema, calves nontender A: 27 yo , s/p NVD on 07/07/17, PPD 2. Pt stable, pain well controlled. Doing well. P: Discharge today -[email or web address] Addendum by Dr. Santiago: I have evaluated the patient independently and I agree with the above Datetime: 07/08/2017 07:14 IP PP Procedures: None Vital Signs Provider PP: Reviewed; Within Normal Limits
[2017-07-09 18:21] VITALS: BP 128/83; PULSE 72; RESP 20; TEMP 98.2
== END 2017-07-09 12:35 | disposition home or self-care (01) | DRG 775 ==
LOC: H.EROB2 23:17 → H.L&D 23:28 → H.EROB2 07-07 05:13 → H.OB/GYN 07-07 13:22
PROVIDERS: ADMIT Obstetrics & Gynecology; ATTEND Obstetrics & Gynecology
PROC: 10E0XZZ Delivery of Products of Conception, External Approach (ICD-10-PCS; principal; 2017-07-07)
PROC: 0KQM0ZZ Repair Perineum Muscle, Open Approach (ICD-10-PCS; 2017-07-07)
PROC: 0UQMXZZ Repair Vulva, External Approach (ICD-10-PCS; 2017-07-07)
PROC: 10907ZC Drainage of Amniotic Fluid, Therapeutic from Products of Conception, Via Natural or Artificial Opening (ICD-10-PCS; 2017-07-07)
PROC: 4A1HXCZ Monitoring of Products of Conception, Cardiac Rate, External Approach (ICD-10-PCS; 2017-07-07)
DX: O60.14X0 Preterm labor third trimester with preterm delivery third trimester, not applicable or unspecified (principal); O66.0 Obstructed labor due to shoulder dystocia; O70.1 Second degree perineal laceration during delivery; O71.82 Other specified trauma to perineum and vulva; O99.824 Streptococcus B carrier state complicating childbirth; Z3A.36 36 weeks gestation of pregnancy; Z37.0 Single live birth

== ENCOUNTER 2017-11-05 21:45 | Emergency (ER) | payer OTHER ==
[2017-11-05 21:45] VITALS: BMI 34.0
[2017-11-05 22:11] VITALS: BP 128/79; PULSE 71; RESP 18; TEMP 98; O2SAT 99
--- NOTE | 2017-11-05 22:50 | ED PDOC ---
HPI: General Adult Time Seen by Provider: 11/05/17 22:18 Chief Complaint (Nursing): Weakness/Neurological Deficit Chief Complaint (Provider): Left sided facial numbness History Per: Patient History/Exam Limitations: no limitations Onset/Duration Of Symptoms: Days Have you had recent travel within the past 21 days to any of the following countries: [place], [place], [place] or [place]?: No Additional History Per: Patient Additional Complaint(s): 27yo female, presents to ED with complaints of left sided facial numbness for the past 4 days. She also reports numbness to the left side of her tongue. Patient denies any facial droop trouble swallowing, trouble sleeping. She has been able to eat normally as well. She has no other medical complaints. PMD: Dr. Andrade, [facility] Against Medical Advice - AMA Patient Left Against Medical Advice: The patient declines admission to the hospital and wishes to leave the Emergency Department. This action is against my medical advice. This decision was made with informed refusal. The patient was told that admission to the hospital is necessary. Explanation of the reasons why were discussed. The risks of leaving were explained to the patient and include, but are not limited to, worsening of known or currently unknown conditions, permanent disability and from undiagnosed or untreated conditions. The patient has the capacity to make this informed decision and understands my explanation of the current medical problem and risks of leaving. The patient voluntarily accepts these risks and signed an AMA form documenting our conversation. The patient was given the opportunity to ask questions and reconsider. The patient was encouraged to return to the Emergency Department at any time for further care. Past Medical History Reviewed: Historical Data, Nursing Documentation, Vital Signs Vital Signs: Last Vital Signs Temp 98.0 F 11/05/17 22:09 Pulse 71 11/05/17 22:09 Resp 18 11/05/17 22:09 BP 128/79 11/05/17 22:09 Pulse Ox 99 11/05/17 22:54 - Medical History PMH: Anemia (hx transfusion) Denies: Depression, Diabetes, HTN, Chronic Kidney Disease - Surgical History Surgical History: No Surg Hx - Family History Family History: States: No Known Family Hx, Unknown Family Hx - Immunization History Hx Tetanus Toxoid Vaccination: No Hx Influenza Vaccination: No Hx Pneumococcal Vaccination: No - Home Medications Home Medications: Ambulatory Orders Medication Instructions Recorded Vit Calc,Iron,Folic 1 tab PO DAILY 05/10/17 [ Vitamins] Ferrous Sulfate [Feosol] 325 mg PO DAILY #30 tab 07/09/17 Ibuprofen [Motrin Tab] 600 mg PO Q6 PRN #20 tab 07/09/17 - Allergies Allergies/Adverse Reactions: Allergies Allergy/AdvReac Type Severity Reaction Status Date / Time No Known Allergies Allergy Verified 11/05/17 22:08 Review of Systems ROS Statement: Except As Marked, All Systems Reviewed And Found Negative Constitutional: Negative for: Fever, Chills Neurological: Positive for: Numbness (left sided facial numbness). Negative for : Change in Speech Physical Exam - Reviewed Nursing Documentation Reviewed: Yes Vital Signs Reviewed: Yes - Physical Exam Appears: Positive for: Non-toxic, No Acute Distress Skin: Positive for: Normal Color, Warm, Dry Eye Exam: Positive for: Normal appearance, EOMI, PERRL Neck: Positive for: Normal, Painless ROM, Supple Cardiovascular/Chest: Positive for: Regular Rate, Rhythm Respiratory: Positive for: Normal Breath Sounds Extremity: Positive for: Normal ROM. 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 Negative for: Motor/Sensory Deficits, Aphasia, Facial Droop - Laboratory Results Result Diagrams: 11/05/17 23:12 11/05/17 23:12 - ECG O2 Sat by Pulse Oximetry: 99 (RA) Pulse Ox Interpretation: Normal Medical Decision Making Medical Decision Making: Impression: Left sided facial numbness Plan: -- CT head w/o contrast -- Labs -- Tylneol 975mg PO -- Infectious [place] Time: 00:00 Patient left AMA without CT. Patient states she will follow up with PMD. Scribe Attestation: Documented by Emily Chi, acting as a scribe for Huy Wooten MD Provider Attestation: All medical record entries made by the Scribe were at my direction and personally dictated by me. I have reviewed the chart and agree that the record accurately reflects my personal performance of the history, physical exam, medical decision making, and the department course for this patient. I have also personally directed, reviewed, and agree with the discharge instructions and disposition. Disposition - Clinical Impression Clinical Impression: Left facial numbness - Patient ED Disposition Is Patient to be Admitted: No - Disposition Disposition: Against Medical Advice Disposition Time: 00:00 Condition: STABLE Forms: [employer] (Andorran)
[2017-11-05 23:47] LABS: BASO # 0.1 K/uL (0.0-0.2); BASO % 0.6 % (0.0-2.0); EOS # 0.2 K/uL (0.0-0.7); HEMOGLOBIN 12.1 g/dL (12.0-16.0); LYMPH # 3.9 K/uL (1.0-4.3); LYMPH % 33.4 % (20.0-40.0); MEAN CELL VOLUME 77.7 fl (81.0-99.0); MEAN CORPUSCULAR HEMOGLOBIN 25.3 pg (27.0-31.0); MEAN CORPUSCULAR HGB CONC 32.5 g/dL (33.0-37.0); MEAN PLATELET VOLUME 8.6 fl (7.2-11.7); MONO # 0.8 K/uL (0.0-0.8); MONO % 6.5 % (0.0-10.0); NEUT # 6.6 K/uL (1.8-7.0); NEUT % 57.5 % (50.0-75.0); RBC 4.81 Mil/uL (3.80-5.20); RED CELL DISTRIBUTION WIDTH 14.3 % (11.5-14.5); WHITE BLOOD COUNT 11.6 K/uL (4.8-10.8)
[2017-11-05 23:52] LABS: ALB/GLOB RATIO 1.1 (1.0-2.1); ALBUMIN 4.2 g/dL (3.5-5.0); ALT/SGPT 36 U/L (9-52); AST/SGOT 25 U/L (14-36); BLOOD UREA NITROGEN 11 mg/dl (7-17); CALCIUM 9.9 mg/dL (8.4-10.2); GFR AFRICAN-AMERICAN > 60; GFR NON-AFRICAN AMERICAN > 60
--- NOTE | 2017-11-06 10:26 | CARD ---
APPROVED REPORT EKG Measurement Heart [id number] <Conclusion> Normal sinus rhythm Normal ECG
== END 2017-11-06 00:01 | disposition left against medical advice (07) ==
LOC: H.ER 21:45
DX: R20.0 Anesthesia of skin (principal)

== ENCOUNTER 2017-11-22 14:15 | Emergency (ER) | payer SELFPAY ==
[2017-11-22 14:16] VITALS: BMI 34.0
--- NOTE | 2017-11-22 15:29 | ED PDOC ---
HPI: Neurologic - General Time Seen by Provider: 11/22/17 14:40 Chief Complaint (Nursing): Headache Chief Complaint (Provider): L facial numbness Source: patient Exam Limitations: language barrier ([employer]: Ritika Umanzor) - History of Present Illness Allergies/Adverse Reactions: Allergies No Known Allergies Allergy (Verified 11/05/17 22:08) Home Medications: Ambulatory Orders Vit Calc,Iron,Folic [ Vitamins] 1 tab PO DAILY 05/10/17 Ferrous Sulfate [Feosol] 325 mg PO DAILY #30 tab 07/09/17 Ibuprofen [Motrin Tab] 600 mg PO Q6 PRN #20 tab 07/09/17 Ibuprofen [Motrin] 600 mg PO Q6H PRN #20 tab 11/22/17 Nitrofurantoin Macrocrystals [Macrobid] 100 mg PO BID #13 cap 11/22/17 Additional Complaint(s): Pt reports L sided facial numbness X 1 month, intermittent, associated with facial pain, intermittent tongue numbness. Also c/o LUE pins and needles, intermittent. Was in ED 2 weeks ago but signed out AMA, no follow-up. Denies fever, CARRERA, vertigo, weakness. Past Medical History Reviewed: Nursing Documentation, Vital Signs Vital Signs: Last Vital Signs Temp 98.1 F 11/22/17 14:20 Pulse 76 11/22/17 14:20 Resp 16 11/22/17 14:20 BP 133/80 11/22/17 14:20 Pulse Ox 98 11/22/17 14:20 - Medical History PMH: Anemia (hx transfusion) Denies: Depression, Diabetes, HTN, Chronic Kidney Disease - Family History Family History: States: Unknown Family Hx - Living Arrangements Living Arrangements: With Family - Social History Current smoker - smoking cessation education provided: No Alcohol: None Drugs: Denies - Immunization History Hx Tetanus Toxoid Vaccination: No Hx Influenza Vaccination: No Hx Pneumococcal Vaccination: No - Home Medications Home Medications: Ambulatory Orders Medication Instructions Recorded Vit Calc,Iron,Folic 1 tab PO DAILY 05/10/17 [ Vitamins] Ferrous Sulfate [Feosol] 325 mg PO DAILY #30 tab 07/09/17 Ibuprofen [Motrin Tab] 600 mg PO Q6 PRN #20 tab 07/09/17 Ibuprofen [Motrin] 600 mg PO Q6H PRN #20 tab 11/22/17 Nitrofurantoin Macrocrystals 100 mg PO BID #13 cap 11/22/17 [Macrobid] - Allergies Allergies/Adverse Reactions: Allergies Allergy/AdvReac Type Severity Reaction Status Date / Time No Known Allergies Allergy Verified 11/05/17 22:08 Review of Systems Constitutional: Negative for: Fever, Chills Eyes: Negative for: Vision Change Cardiovascular: Negative for: Chest Pain, Palpitations Respiratory: Negative for: Cough, Shortness of Breath Gastrointestinal: Negative for: Nausea, Vomiting, Abdominal Pain, Diarrhea Genitourinary Female: Negative for: Dysuria Musculoskeletal: Negative for: Neck Pain, Arm Pain, Back Pain, Leg Pain Skin: Negative for: Rash, Lesions Neurological: Positive for: Numbness, Dizziness (Lightheadedness). Negative for : Weakness, Incoordination, Change in Speech, Confusion, Seizures, Altered Mental Status, Headache Physical Exam - Reviewed Nursing Documentation Reviewed: Yes Vital Signs Reviewed: Yes - Physical Exam Appears: Positive for: Well, No Acute Distress Head Exam: Positive for: ATRAUMATIC, NORMAL INSPECTION Skin: Positive for: Normal Color, Warm, Dry Eye Exam: Positive for: Normal appearance, EOMI, PERRL Neck: Positive for: Normal, Painless ROM, Supple Cardiovascular/Chest: Positive for: Regular Rate, Rhythm Respiratory: Positive for: Normal Breath Sounds Gastrointestinal/Abdominal: Positive for: Normal Exam Back: Positive for: Normal Inspection Extremity: Positive for: Normal ROM. Negative for: Tenderness, Swelling Neurologic/Psych: Positive for: Alert, head of biology II-XII, Oriented, Cerebellar Tests ( WNL), Gait (Steady). Negative for: Motor/Sensory Deficits, Aphasia, Facial Droop - Laboratory Results Result Diagrams: 11/22/17 16:02 11/22/17 16:02 - ECG O2 Sat by Pulse Oximetry: 98 Medical Decision Making Medical Decision Makin yo female with intermittent facial numbness and LUE tingling. - labs - EKG - CT head Time: [address] RESULTS FINDINGS: HEMORRHAGE: No intracranial hemorrhage. BRAIN: No mass effect or edema. No atrophy or chronic microvascular ischemic changes. VENTRICLES: Unremarkable. No hydrocephalus. CALVARIUM: Unremarkable. PARANASAL SINUSES: Unremarkable as visualized. No significant inflammatory changes. MASTOID AIR CELLS: Unremarkable as visualized. No inflammatory changes. OTHER FINDINGS: None. IMPRESSION: Normal CT of the Head. Scribe Attestation: Documented by Bertha Pinto acting as a scribe for Dr. Gina Alejandre MD. Scribe Attestation: All medical record entries made by the Scribe were at my direction and personally dictated by me. I have reviewed the chart and agree that the record accurately reflects my personal performance of the medical decision making for this patient. I have also personally directed, reviewed, and agree with the discharge instructions and disposition. Disposition - Clinical Impression Clinical Impression: Facial paresthesia, Paresthesia of left upper extremity, Dizziness, Urinary tract infection - Disposition Referrals: [facility] [Outside] Vero Jennings MD [Medical Doctor] - Disposition: Routine/Home Disposition Time: 16:56 Condition: IMPROVED Prescriptions: Ibuprofen [Motrin] 600 mg PO Q6H PRN #20 tab PRN Reason: Pain, Moderate (4-7) Nitrofurantoin Macrocrystals [Macrobid] 100 mg PO BID #13 cap Instructions: Urinary Tract Infections in Adults, Dizziness, Nonvertigo, (DC), Paresthesias (DC) Forms: [employer] (Sinhala) Print Language: BENGALI
[2017-11-22 16:17] LABS: BASO # 0.1 K/uL (0.0-0.2); BASO % 0.9 % (0.0-2.0); EOS # 0.1 K/uL (0.0-0.7); EOS % 1.2 % (0.0-4.0); HEMOGLOBIN 11.8 g/dL (12.0-16.0); LYMPH # 3.5 K/uL (1.0-4.3); LYMPH % 35.5 % (20.0-40.0); MEAN CELL VOLUME 76.8 fl (81.0-99.0); MEAN CORPUSCULAR HEMOGLOBIN 24.8 pg (27.0-31.0); MEAN CORPUSCULAR HGB CONC 32.2 g/dL (33.0-37.0); MEAN PLATELET VOLUME 8.6 fl (7.2-11.7); MONO # 0.4 K/uL (0.0-0.8); MONO % 4.5 % (0.0-10.0); NEUT # 5.7 K/uL (1.8-7.0); NEUT % 57.9 % (50.0-75.0); NRBC % 0.1 % (0.0-0.0); RBC 4.76 Mil/uL (3.80-5.20); RED CELL DISTRIBUTION WIDTH 14.3 % (11.5-14.5); WHITE BLOOD COUNT 9.9 K/uL (4.8-10.8)
[2017-11-22 16:19] LABS: PROTHROMBIN TIME 11.1 Seconds (9.8-13.1)
[2017-11-22 16:20] LABS: PARTIAL THROMBOPLASTIN TIME 27.8 Seconds (25.6-37.1)
[2017-11-22 16:24] LABS: SQUAMOUS EPITHIAL 5 /hpf (0-5); URINE BILIRUBIN NEGATIVE (NEGATIVE); URINE BLOOD LARGE (NEGATIVE); URINE CLARITY SLIGHTY-CLOUDY (Clear); URINE COLOR YELLOW (YELLOW); URINE GLUCOSE (UA) NEG (Normal); URINE LEUKOCYTE ESTERASE MOD Leu/uL (Negative); URINE PROTEIN NEGATIVE (NEGATIVE); URINE UROBILINOGEN 0.2-1.0 mg/dL (0.2-1.0)
[2017-11-22 16:32] LABS: ALBUMIN 3.9 g/dL (3.5-5.0); ALT/SGPT 33 U/L (9-52); AST/SGOT 27 U/L (14-36); BLOOD UREA NITROGEN 13 mg/dl (7-17); GFR AFRICAN-AMERICAN > 60; GFR NON-AFRICAN AMERICAN > 60
--- NOTE | 2017-11-22 16:32 | CT ---
PROCEDURE: CT HEAD WITHOUT CONTRAST. HISTORY: L facial numbness COMPARISON: None available. TECHNIQUE: Axial computed tomography images were obtained through the head/brain without intravenous contrast. Radiation dose: Total exam DLP = 773 mGy-cm. This CT exam was performed using one or more of the following dose reduction techniques: Automated exposure control, adjustment of the mA and/or kV according to patient size, and/or use of iterative reconstruction technique. FINDINGS: HEMORRHAGE: No intracranial hemorrhage. BRAIN: No mass effect or edema. No atrophy or chronic microvascular ischemic changes. VENTRICLES: Unremarkable. No hydrocephalus. CALVARIUM: Unremarkable. PARANASAL SINUSES: Unremarkable as visualized. No significant inflammatory changes. MASTOID AIR CELLS: Unremarkable as visualized. No inflammatory changes. OTHER FINDINGS: None. IMPRESSION: Normal CT of the Head.
[2017-11-22 17:04] VITALS: BP 125/72; PULSE 78; RESP 15; TEMP 98.3
--- NOTE | 2017-11-23 08:24 | CARD ---
APPROVED REPORT EKG Measurement Heart [id number] <Conclusion> Normal sinus rhythm Incomplete RBBB type IVCD Nonspecific T wave abnormality Prolonged QT Abnormal ECG
[2017-11-26 17:54] VITALS: O2SAT 98
== END 2017-11-22 17:04 | disposition home or self-care (01) ==
LOC: H.ER 14:15
DX: R20.0 Anesthesia of skin (principal); R42 Dizziness and giddiness; N39.0 Urinary tract infection, site not specified

== ENCOUNTER 2018-02-20 09:16 | Emergency (ER) | payer SELFPAY ==
[2018-02-20 09:17] VITALS: BMI 34.0
[2018-02-20 10:18] VITALS: O2SAT 100
[2018-02-20 11:03] LABS: BASO # 0.1 K/uL (0.0-0.2); BASO % 1.1 % (0.0-2.0); EOS # 0.1 K/uL (0.0-0.7); EOS % 1.5 % (0.0-4.0); HEMOGLOBIN 13.7 g/dL (12.0-16.0); LYMPH # 3.1 K/uL (1.0-4.3); LYMPH % 37.1 % (20.0-40.0); MEAN CELL VOLUME 78.6 fl (81.0-99.0); MEAN CORPUSCULAR HEMOGLOBIN 25.6 pg (27.0-31.0); MEAN CORPUSCULAR HGB CONC 32.6 g/dL (33.0-37.0); MEAN PLATELET VOLUME 8.6 fl (7.2-11.7); MONO # 0.5 K/uL (0.0-0.8); MONO % 6.4 % (0.0-10.0); NEUT # 4.5 K/uL (1.8-7.0); NEUT % 53.9 % (50.0-75.0); NRBC % 0.2 % (0.0-0.0); RBC 5.33 Mil/uL (3.80-5.20); RED CELL DISTRIBUTION WIDTH 15.8 % (11.5-14.5); WHITE BLOOD COUNT 8.4 K/uL (4.8-10.8)
--- NOTE | 2018-02-20 11:14 | RAD ---
Date of service: 02/20/2018 HISTORY: chest pain COMPARISON: 06/22/2017 FINDINGS: LUNGS: No active pulmonary disease. PLEURA: No significant pleural effusion identified, no pneumothorax apparent. CARDIOVASCULAR: Normal. OSSEOUS STRUCTURES: No significant abnormalities. VISUALIZED UPPER ABDOMEN: Normal. OTHER FINDINGS: None. IMPRESSION: No active disease. No interval pathology noted
[2018-02-20 11:17] LABS: BLOOD UREA NITROGEN 10 mg/dl (7-17); CALCIUM 9.6 mg/dL (8.4-10.2); GFR NON-AFRICAN AMERICAN > 60
--- NOTE | 2018-02-20 12:04 | CT ---
Date of service: 02/20/2018 PROCEDURE: CT HEAD WITHOUT CONTRAST. HISTORY: headache facial pain COMPARISON: 11/22/2017 TECHNIQUE: Axial computed tomography images were obtained through the head/brain without intravenous contrast. Radiation dose: Total exam DLP = 784 mGy-cm. This CT exam was performed using one or more of the following dose reduction techniques: Automated exposure control, adjustment of the mA and/or kV according to patient size, and/or use of iterative reconstruction technique. FINDINGS: HEMORRHAGE: No intracranial hemorrhage. BRAIN: No mass effect or edema. No atrophy or chronic microvascular ischemic changes. VENTRICLES: Unremarkable. No hydrocephalus. CALVARIUM: Unremarkable. PARANASAL SINUSES: No air-fluid levels noted. No marked mucosal inflammatory thickening seen. There is a flat small incidental retention cyst in a lateral right sphenoid sinus-similar. MASTOID AIR CELLS: Unremarkable as visualized. No inflammatory changes. OTHER FINDINGS: None. IMPRESSION: No intracranial hemorrhage or mass effect. Incidentally noted is a benign appearing flat small incidental retention cyst-lateral right sphenoid sinus-this is similar appearing. No more significant appearing paranasal sinus inflammatory changes suggested
--- NOTE | 2018-02-20 14:35 | ED PDOC ---
Upper Extremity Pain/Injury Time Seen by Provider: 02/20/18 09:57 Chief Complaint (Nursing): Upper Extremity Problem/Injury Chief Complaint (Provider): pain and swelling of her right side History Per: Patient History/Exam Limitations: no limitations Onset/Duration Of Symptoms: Days (last night) Current Symptoms Are (Timing): Better Additional Complaint(s): Shalini Dawson is a 27 year old female, with no significant past medical history , who presents to the emergency department for pain and swelling of her right side associated with some mild right sided chest pain. Patient states right sided facial pain and swelling started last night and this morning she noticed swelling and pain to her right hand which has improved since. However, patient states right sided facial symptoms are associated with numbness. Patient reports similar symptoms many times in the past and has been seen here for similar complaints. Patient is concerned for swelling to right hand and face which prompted ED visit today. She didn't take any medications for symptoms. She denies any weakness in arms or legs, shortness of breath, recent travel, control use, fever or chills. No further medical complaints. PMD: Clinic Past Medical History Reviewed: Historical Data, Nursing Documentation, Vital Signs Vital Signs: Last Vital Signs Temp 98.8 F 02/20/18 10:12 Pulse 63 02/20/18 10:12 Resp 17 02/20/18 10:12 BP 105/86 02/20/18 10:12 Pulse Ox 100 02/20/18 10:12 - Medical History PMH: Anemia (hx transfusion) Denies: Depression, Diabetes, HTN, Chronic Kidney Disease - Surgical History Surgical History: No Surg Hx - Family History Family History: States: Unknown Family Hx - Social History Current smoker - smoking cessation education provided: No Alcohol: Social Drugs: Denies - Immunization History Hx Tetanus Toxoid Vaccination: No Hx Influenza Vaccination: No Hx Pneumococcal Vaccination: No - Home Medications Home Medications: Ambulatory Orders Medication Instructions Recorded Vit Calc,Iron,Folic 1 tab PO DAILY 05/10/17 [ Vitamins] Ferrous Sulfate [Feosol] 325 mg PO DAILY #30 tab 07/09/17 Ibuprofen [Motrin Tab] 600 mg PO Q6 PRN #20 tab 07/09/17 Ibuprofen [Motrin] 600 mg PO Q6H PRN #20 tab 11/22/17 Nitrofurantoin Macrocrystals 100 mg PO BID #13 cap 11/22/17 [Macrobid] Gabapentin 300 mg PO TID #30 capsule 02/20/18 - Allergies Allergies/Adverse Reactions: Allergies Allergy/AdvReac Type Severity Reaction Status Date / Time No Known Allergies Allergy Verified 02/20/18 10:18 Review of Systems ROS Statement: Except As Marked, All Systems Reviewed And Found Negative Constitutional: Negative for: Fever, Chills Cardiovascular: Positive for: Chest Pain (right sided) Respiratory: Negative for: Shortness of Breath Musculoskeletal: Positive for: Arm Pain (right swelling and pain) Skin: Positive for: Other (right sided facial pain and swelling) Neurological: Positive for: Numbness (right facial). Negative for: Weakness Physical Exam - Reviewed Nursing Documentation Reviewed: Yes Vital Signs Reviewed: Yes - Physical Exam Appears: Positive for: No Acute Distress Head Exam: Positive for: ATRAUMATIC (Mild swelling of the right lower face, nontender and no erythema. Normal pulses), NORMOCEPHALIC Skin: Positive for: Normal Color, Warm, Dry Eye Exam: Positive for: Normal appearance, EOMI, PERRL Neck: Positive for: Painless ROM, Supple Cardiovascular/Chest: Positive for: Regular Rate, Rhythm. Negative for: Edema, Murmur Respiratory: Positive for: Normal Breath Sounds. Negative for: Respiratory Distress Gastrointestinal/Abdominal: Positive for: Normal Exam, Soft. Negative for: Tenderness, Guarding, Rebound Back: Positive for: Normal Inspection. Negative for: Vertebral Tenderness Extremity: Positive for: Normal ROM (upper and lower extemities). Negative for : Deformity, Swelling (mild swelling of right sided) Neurologic/Psych: Positive for: Alert, Oriented. Negative for: Motor/Sensory Deficits - Laboratory Results Result Diagrams: 02/20/18 10:35 02/20/18 10:35 - ECG O2 Sat by Pulse Oximetry: 100 (RA) Pulse Ox Interpretation: Normal - Progress Re-evaluation Time: 14:40 Condition: Re-examined, Improved Medical Decision Making Medical Decision Making: Time: 09:57 Initial Impression: Swelling and pain of right side and right sided facial numbness. Differential includes: acute renal failure, trigeminal neuralgia or other forms of peripheral neuropathy Initial Plan: --Head w/o contrast [CT] --EKG --BMP --Troponin I --CBC w/ differential --Chest portable [RAD] --Reglan 10 mg IVP --Toradol 30 mg IVP --Tylenol 325 mg tab 650 mg PO --Reevaluation 12:[address] FINDINGS: HEMORRHAGE: No intracranial hemorrhage. BRAIN: No mass effect or edema. No atrophy or chronic microvascular ischemic changes. VENTRICLES: Unremarkable. No hydrocephalus. CALVARIUM: Unremarkable. PARANASAL SINUSES: No air-fluid levels noted. No marked mucosal inflammatory thickening seen. There is a flat small incidental retention cyst in a lateral right sphenoid sinus-similar. MASTOID AIR CELLS: Unremarkable as visualized. No inflammatory changes. OTHER FINDINGS: None. IMPRESSION: No intracranial hemorrhage or mass effect. Incidentally noted is a benign appearing flat small incidental retention cyst- lateral right sphenoid sinus-this is similar appearing. No more significant appearing paranasal sinus inflammatory changes suggested Scribe Attestation: Documented by Sumit Rod, acting as a scribe for Oskar Solano MD Provider Scribe Attestation: All medical record entries made by the Scribe were at my direction and personally dictated by me. I have reviewed the chart and agree that the record accurately reflects my personal performance of the history, physical exam, medical decision making, and the department course for this patient. I have also personally directed, reviewed, and agree with the discharge instructions and disposition. Disposition - Clinical Impression Clinical Impression: Facial paresthesia, Hand swelling - Patient ED Disposition Is Patient to be Admitted: No Doctor Will See Patient In The: Office Counseled Patient/Family Regarding: Studies Performed, Diagnosis, Need For Followup - Disposition Referrals: [facility] [Outside] Gonzales Alexandra MD [Staff Provider] - Disposition: Routine/Home Disposition Time: 14:40 Condition: GOOD Additional Instructions: SHALINI DAWSON, thank you for letting us take care of you today. Your provider was Oskar Solano MD and you were treated for SWOLLEN HAND. The emergency medical care you received today was directed at your acute symptoms. If you were prescribed any medication, please fill it and take as directed. It may take several days for your symptoms to resolve. Return to the Emergency Department if your symptoms worsen, do not improve, or if you have any other problems. Please contact your doctor or call one of the physicians/clinics you have been referred to that are listed on the Patient Visit Information form that is included in your discharge packet. Bring any paperwork you were given at discharge with you along with any medications you are taking to your follow up visit. Our treatment cannot replace ongoing medical care by a primary care provider outside of the emergency department. Thank you for allowing the [facility] team to be part of your care today. If you had an X-Ray or CT scan: A Radiologist will review the ED reading if any change in treatment is needed we will contact you. If you had a blood, urine, or wound culture: It will take several days for the results, if any change in treatment is needed we will contact you. If you had an STI test: It will take 48 hours for the results. Please call after 1 week if you have not heard back. Prescriptions: Gabapentin 300 mg PO TID #30 capsule Instructions: Swelling, Paresthesias (DC) Forms: [employer] (Telugu) Print Language: UPPER SORBIAN
[2018-02-20 14:38] VITALS: BP 146/90; PULSE 66; RESP 18; TEMP 98
--- NOTE | 2018-02-20 22:52 | CARD ---
APPROVED REPORT Date of service: 02/20/2018 EKG Measurement Heart [id number] <Conclusion> Normal sinus rhythm Normal ECG
== END 2018-02-20 14:39 | disposition home or self-care (01) ==
LOC: H.ER 09:16
DX: R20.0 Anesthesia of skin (principal); M79.89 Other specified soft tissue disorders
CPT/HCPCS: 70450; 71045; 80048; 81025; 84484; 85025; 93005; 96374; 99284; J2765

== ENCOUNTER 2018-05-05 17:28 | Emergency (ER) | payer OTHER ==
[2018-05-05 17:28] VITALS: BMI 34.0
[2018-05-05 17:54] VITALS: RESP 18; O2SAT 100
[2018-05-05 18:41] LABS: SQUAMOUS EPITHIAL 1 /hpf (0-5); URINE BILIRUBIN NEGATIVE (NEGATIVE); URINE BLOOD SMALL (NEGATIVE); URINE CLARITY CLEAR (Clear); URINE COLOR YELLOW (YELLOW); URINE GLUCOSE (UA) NEG (Normal); URINE LEUKOCYTE ESTERASE NEG Leu/uL (Negative); URINE PROTEIN NEGATIVE (NEGATIVE); URINE UROBILINOGEN 0.2-1.0 mg/dL (0.2-1.0)
[2018-05-05 18:44] LABS: BASO # 0.2 K/uL (0.0-0.2); BASO % 2.5 % (0.0-2.0); EOS # 0.2 K/uL (0.0-0.7); EOS % 1.8 % (0.0-4.0); HEMOGLOBIN 12.4 g/dL (12.0-16.0); LYMPH # 2.8 K/uL (1.0-4.3); LYMPH % 31.7 % (20.0-40.0); MEAN CELL VOLUME 81.4 fl (81.0-99.0); MEAN CORPUSCULAR HGB CONC 33.1 g/dL (33.0-37.0); MEAN PLATELET VOLUME 8.1 fl (7.2-11.7); MONO # 0.5 K/uL (0.0-0.8); MONO % 5.6 % (0.0-10.0); NEUT # 5.2 K/uL (1.8-7.0); NEUT % 58.4 % (50.0-75.0); NRBC % 0.2 % (0.0-0.0); RBC 4.61 Mil/uL (3.80-5.20); RED CELL DISTRIBUTION WIDTH 15.3 % (11.5-14.5); WHITE BLOOD COUNT 8.9 K/uL (4.8-10.8)
[2018-05-05 18:53] LABS: BLOOD UREA NITROGEN 10 mg/dl (7-17); CALCIUM 9.1 mg/dL (8.4-10.2); GFR NON-AFRICAN AMERICAN > 60
--- NOTE | 2018-05-05 19:28 | ED PDOC ---
HPI: Female Pain Time Seen by Provider: 05/05/18 18:19 Chief Complaint (Nursing): Female Genitourinary Chief Complaint (Provider): Female Genitourinary History Per: Patient History/Exam Limitations: no limitations Onset/Duration Of Symptoms: Other (1 month) Additional Complaint(s): 27 years old female presents to ER for evaluation of worsening of womb pain for a month. Patient reports she was supposed to follow up with her office asst but missed her appointment and states her next appointment is not soon. She reports she a normal spontaneous vaginal delivery and was breast feeding until 3 months ago. Patient reports her last menstural period was normal. She denies any vaginal discharge, vaginal bleeding, chest pain, shortness of breath, weight loss or gain, dizziness, headaches, or taking any medications. LNMP: December 18 PMD: Clinic Past Medical History Reviewed: Historical Data, Nursing Documentation, Vital Signs Vital Signs: Last Vital Signs Temp 96.9 F L 05/05/18 17:51 Pulse 78 05/05/18 17:51 Resp 18 05/05/18 17:51 BP 136/91 H 05/05/18 17:51 Pulse Ox 100 05/05/18 17:51 - Medical History PMH: Anemia (hx transfusion) Denies: Depression, Diabetes, HTN, Chronic Kidney Disease - Surgical History Surgical History: No Surg Hx - Family History Family History: States: Unknown Family Hx - Social History Current smoker - smoking cessation education provided: No Alcohol: Social Drugs: Denies - Immunization History Hx Tetanus Toxoid Vaccination: No Hx Influenza Vaccination: No Hx Pneumococcal Vaccination: No - Home Medications Home Medications: Ambulatory Orders Medication Instructions Recorded RX: Vit Calc,Iron,Folic 1 tab PO DAILY 05/10/17 [ Vitamins] RX: Ferrous Sulfate [Feosol] 325 mg PO DAILY #30 tab 07/09/17 RX: Ibuprofen [Motrin Tab] 600 mg PO Q6 PRN #20 tab 07/09/17 Ibuprofen [Motrin] 600 mg PO Q6H PRN #20 tab 11/22/17 Nitrofurantoin Macrocrystals 100 mg PO BID #13 cap 11/22/17 [Macrobid] RX: Gabapentin 300 mg PO TID #30 capsule 02/20/18 - Allergies Allergies/Adverse Reactions: Allergies Allergy/AdvReac Type Severity Reaction Status Date / Time No Known Allergies Allergy Verified 02/20/18 10:18 Review of Systems ROS Statement: Except As Marked, All Systems Reviewed And Found Negative Cardiovascular: Negative for: Chest Pain Respiratory: Negative for: Shortness of Breath Genitourinary Female: Positive for: Pelvic Pain. Negative for: Vaginal Discharge, Vaginal Bleeding Neurological: Negative for: Headache, Dizziness Physical Exam - Reviewed Nursing Documentation Reviewed: Yes Vital Signs Reviewed: Yes - Physical Exam Appears: Positive for: Non-toxic, No Acute Distress Head Exam: Positive for: ATRAUMATIC, NORMOCEPHALIC Skin: Positive for: Normal Color, Warm, Dry Eye Exam: Positive for: Normal appearance, EOMI, PERRL Neck: Positive for: Normal, Painless ROM, Supple Cardiovascular/Chest: Positive for: Regular Rate, Rhythm. Negative for: Murmur Respiratory: Positive for: Normal Breath Sounds. Negative for: Wheezing Gastrointestinal/Abdominal: Positive for: Normal Exam, Soft. Negative for: Tenderness Pelvic Exam: Positive for: External Exam Normal. Negative for: Discharge Back: Positive for: Normal Inspection. Negative for: L CVA Tenderness, R CVA Tenderness Extremity: Positive for: Normal ROM. Negative for: Pedal Edema, Swelling Neurologic/Psych: Positive for: Alert, Oriented (x3) - Laboratory Results Result Diagrams: 05/05/18 18:40 05/05/18 18:40 - ECG O2 Sat by Pulse Oximetry: 100 (RA) Pulse Ox Interpretation: Normal Medical Decision Making Medical Decision Making: Time: 1823 A/P: workup for entry uterine abnormality. Interprester # [id number] --Based on worsening pelvic pain, likely amenorrhea --Reevaluate patient based in labs and UA 2051 Transvaginal US FINDINGS: ENDOMETRIUM: Normal thickness. UTERUS/CERVIX: The uterus appears within normal limits. No uterine fibroid or other mass evident. Measures 8.0 x 3.5 x 5.2 cm. RIGHT OVARY: Normal Doppler flow. No abnormal mass. Measures 3.4 x 1.8 x 1.9 cm, containing a 1.3 cm cyst. LEFT OVARY: Normal Doppler flow. No abnormal mass. Measures 2.3 cm 1.2 x 2.3 cm, containing a 12 mm cyst. FREE FLUID: No free fluid. IMPRESSION: Unremarkable pelvic ultrasound. Scribe Attestation: Documented by Bia Mcmanus, acting as a scribe for Chanda Cho MD. Provider Scribe Attestation: All medical record entries made by the Scribe were at my direction and personally dictated by me. I have reviewed the chart and agree that the record accurately reflects my personal performance of the history, physical exam, medical decision making, and the department course for this patient. I have also personally directed, reviewed, and agree with the discharge instructions and disposition. 2129 Labs and sonogram show no abnormalities. Pt already scheduled for follow up with office asst. Return paramters discussed. Disposition - Clinical Impression Clinical Impression: Genitourinary Pain - Disposition Disposition: Routine/Home Disposition Time: 21:30 Condition: STABLE Additional Instructions: Take Tylenol or Motrin as needed for pain. Follow up with office asst and primary medical doctor for further evaluation of back pain. Return to the emergency department if symptoms worsen or if new symptoms develop. Forms: [employer] (Maltese), [employer] (Central African) Print Language: GREENLANDIC
[2018-05-05 22:35] VITALS: BP 133/88; PULSE 71; TEMP 98.3
--- NOTE | 2018-05-06 11:23 | US ---
Date of service: 05/05/2018 HISTORY: Pelvic pain. Amenorrhea 4-5 months. COMPARISON: 10/13/2017 pelvic ultrasound TECHNIQUE: Transabdominal, transvaginal. Real -time technique with 2D, duplex and color Doppler. FINDINGS: UTERUS: Measures 3.5 x 5.2 x 8.0 cm. Normal in size and appearance. No fibroid or other mass lesion seen. ENDOMETRIUM: Measures 3.9 mm in diameter. Unremarkable. CERVIX: No cervical abnormality identified. RIGHT OVARY: Measures 1.4 x 2 x 2.7 cm. No solid mass. Normal flow. Dominant cyst 1.2 x 1.2 x 1.4 cm. Multiple subcentimeter follicles. LEFT OVARY: Measures 1 x 1.8 x 2.7 cm. No solid mass. Normal flow. Multiple subcentimeter follicles. FREE FLUID: No significant free fluid noted. OTHER FINDINGS: None. IMPRESSION: No significant or acute findings to account for/ related to the clinical presentation. Additional benign and/or incidental findings described above. No significant interval change compared to the prior examination(s). Concordant findings (preliminary report) provided by [facility].
== END 2018-05-05 22:41 | disposition home or self-care (01) ==
LOC: H.ER 17:28
DX: R10.2 Pelvic and perineal pain (principal)

== ENCOUNTER 2018-10-31 09:30 | Emergency (ER) | payer SELFPAY ==
[2018-10-31 09:39] VITALS: BMI 33.6
[2018-10-31 10:41] VITALS: BP 130/70; PULSE 78; RESP 20; TEMP 97.6; O2SAT 98
--- NOTE | 2018-10-31 11:25 | ED PDOC ---
History of Present Illness History of Present Illness: 28 year old female with three days of cough and runny nose, now associated with back and chest pain. Patient reports she has never experienced seasonal allergies before. Denies fever, sick contacts and other complaints. 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 denies: fever Sick Contacts (Context): None Past Medical History Reviewed: Historical Data, Nursing Documentation, Vital Signs Vital Signs: Last Vital Signs Temp 97.6 F 10/31/18 10:40 Pulse 78 10/31/18 10:40 Resp 20 10/31/18 10:40 BP 130/70 10/31/18 10:40 Pulse Ox 98 10/31/18 10:40 - Medical History PMH: Anemia (hx transfusion) Denies: Depression, Diabetes, HTN, Chronic Kidney Disease - Surgical History Surgical History: No Surg Hx - Family History Family History: States: Unknown Family Hx - Immunization History Hx Tetanus Toxoid Vaccination: No Hx Influenza Vaccination: No Hx Pneumococcal Vaccination: No - Home Medications Home Medications: Ambulatory Orders Medication Instructions Recorded Vit Calc,Iron,Folic 1 tab PO DAILY 05/10/17 [ Vitamins] Ferrous Sulfate [Feosol] 325 mg PO DAILY #30 tab 07/09/17 Ibuprofen [Motrin Tab] 600 mg PO Q6 PRN #20 tab 07/09/17 Ibuprofen [Motrin] 600 mg PO Q6H PRN #20 tab 11/22/17 Nitrofurantoin Macrocrystals 100 mg PO BID #13 cap 11/22/17 [Macrobid] Gabapentin 300 mg PO TID #30 capsule 02/20/18 Azithromycin [Z-Ag] 250 mg PO DAILY #6 tab 10/31/18 Cetirizine HCl [Zyrtec] 10 mg PO DAILY #30 tab.rapdis 10/31/18 Montelukast Sodium [Singulair] 10 mg PO DAILY #30 tablet 10/31/18 - Allergies Allergies/Adverse Reactions: Allergies Allergy/AdvReac Type Severity Reaction Status Date / Time No Known Allergies Allergy Verified 10/31/18 09:54 Review of Systems ROS Statement: Except As Marked, All Systems Reviewed And Found Negative Constitutional: Negative for: Fever, Chills ENT: Positive for: Nose Discharge Cardiovascular: Positive for: Chest Pain Respiratory: Positive for: Cough Musculoskeletal: Positive for: Back Pain Physical Exam - Reviewed Nursing Documentation Reviewed: Yes Vital Signs Reviewed: Yes - Physical Exam Appears: Positive for: No Acute Distress Head Exam: Positive for: ATRAUMATIC, NORMAL INSPECTION, NORMOCEPHALIC Skin: Positive for: Normal Color, Warm, Dry Eye Exam: Positive for: EOMI, Normal appearance, PERRL ENT: Positive for: Pharynx Is (irritated with cobblestoning), Sinus Pain/Drainage (clear rhinorrhea) Cardiovascular/Chest: Positive for: Regular Rate, Rhythm. Negative for: Murmur Respiratory: Positive for: Normal Breath Sounds. Negative for: Wheezing, Respiratory Distress Neurological/Psych: Positive for: Awake, Alert, Normal Tone, Oriented (x 3). Negative for: Motor/Sensory Deficits Medical Decision Making Medical Decision Makin:00 MDM: Seasonal rhinitis and secondary bronchitis Patient will be discharged with Anali Fontenot and Rafael. Scribe Attestation: Documented by Aracely Wren, acting as a scribe for Chanda Cho MD. Provider Scribe Attestation: All medical record entries made by the Scribe were at my direction and personally dictated by me. I have reviewed the chart and agree that the record accurately reflects my personal performance of the history, physical exam, medical decision making, and the department course for this patient. I have also personally directed, reviewed, and agree with the discharge instructions and disposition. - ECG O2 Sat by Pulse Oximetry: 98 (RA) Pulse Ox Interpretation: Normal Disposition - Clinical Impression Clinical Impression: Bronchitis, Seasonal allergic rhinitis - Disposition Referrals: [facility] [Outside] Disposition: Routine/Home Disposition Time: 10:00 Condition: STABLE Prescriptions: Azithromycin [Z-Ag] 250 mg PO DAILY #6 tab Cetirizine HCl [Zyrtec] 10 mg PO DAILY #30 tab.rapdis Montelukast Sodium [Singulair] 10 mg PO DAILY #30 tablet Instructions: Seasonal Allergies in Adults, Seasonal Allergies (DC), Acute Bronchitis Forms: [employer] (Hungarian) Print Language: PASHTO
== END 2018-10-31 10:41 | disposition home or self-care (01) ==
LOC: H.ER 09:30
DX: J40 Bronchitis, not specified as acute or chronic (principal); J30.2 Other seasonal allergic rhinitis